=== PATIENT | female | born 1955 | race Caucasian/White ===

== ENCOUNTER → 2017-08-08 14:21 | Outpatient (CLI) | payer OTHER, SELFPAY ==
--- NOTE | 2017-08-08 14:24 | DI.MG.S_ITS ---
BILATERAL DIGITAL DIAGNOSTIC MAMMOGRAM 3D/2D: 08/08/2017 CLINICAL: Right breast mass. Family history of breast cancer. Comparison is made to exams dated: 06/11/2016 mammogram, 03/16/2015 mammogram, and 01/14/2014 mammogram - [facility]. There are scattered fibroglandular elements in both breasts. No significant masses, calcifications, or other findings are seen in either breast. IMPRESSION: INCOMPLETE: NEEDS ADDITIONAL IMAGING EVALUATION There is no abnormality seen in the right breast to correspond with the area of clinical concern, however, ultrasound is recommended. This exam was interpreted at Station ID: [id number]. NOTE: For mammograms, a report in lay terms will be sent to the patient. Approximately 15% of breast malignancies will not be visualized mammographically. In the management of a palpable breast mass, a negative mammogram must not discourage biopsy of a clinically suspicious lesion. Electronically Signed By: Joesph yousif/kang:08/08/2017 15:25:38 ACR BI-RADS Category 0: Incomplete 3340F
--- NOTE | 2017-08-08 14:24 | DI.US.S_ITS ---
ULTRASOUND OF RIGHT BREAST: 08/08/2017 CLINICAL: Patient returns for additional imaging over a suspected mass in the right breast. Comparison is made to exams dated: 08/08/2017 mammogram - [facility], 06/11/2016 mammogram, and 03/16/2015 mammogram - [facility][1]. Color flow ultrasound of the right breast was performed. Bearden scale images of the real-time examination were reviewed. There is a benign 0.9 cm x 0.5 cm x 0.4 cm cyst with a smooth internal wall in the right breast at 10 o'clock anterior depth 3 cm from the nipple. This correlates as palpated and with mammography findings. IMPRESSION: BENIGN There is no sonographic evidence of malignancy. The 0.9 cm x 0.5 cm x 0.4 cm cyst in the right breast is benign. A 1 year screening mammogram is recommended. This exam was interpreted at Station ID: [id number]. Electronically Signed By: Joesph yousif/kang:08/08/2017 17:07:17 letter sent: Normal Exam Ultrasound BI-RADS: 2 Benign
== END ==
PROVIDERS: PCP Family Medicine; Visit Provider Family Medicine
DX: N63.10 Unspecified lump in the right breast, unspecified quadrant (principal); Z80.3 Family history of malignant neoplasm of breast
CPT/HCPCS: 76642; 77066; G0279

== ENCOUNTER → 2017-11-27 11:44 | Outpatient (CLI) | payer OTHER, SELFPAY ==
[2017-11-27 12:21] LABS: Add Manual Diff / Slide Review NO; Basophils Percent Auto 0.6 % (0-2); Eosinophils Percent Auto 11.2 % (2-4); Hematocrit 38.1 % (36-46); Hemoglobin 12.9 g/dL (12.0-16.0); Lymphocytes Percent Auto 35.3 % (25-40); Mean Corpuscular HGB Conc 33.8 % (30-36); Mean Corpuscular Hemoglobin 31.5 PG (26-34); Mean Corpuscular Volume 93.2 fL (80-100); Monocytes Percent Auto 12.3 % (3-14); Neutrophils Absolute Auto 1700 /uL (3000-5900); Neutrophils Percent Auto 40.6 % (50-75); Platelet Count 230 X10^3/uL (150-400); Red Blood Cell Count 4.09 X10^6/uL (4.0-5.2); Red Cell Distribution Width 13.6 % (11.6-14.8); White Blood Cell Count 4.2 X10^3/uL (4.5-11.0)
[2017-11-27 12:27] LABS: Alanine Aminotransferase 44 IU/L (9-52); Albumin 4.3 g/dL (3.5-5.0); Albumin Globulin Ratio 1.3 (1.0-2.8); Alkaline Phosphatase 110 U/L (38-126); Aspartate Aminotransferase 39 IU/L (14-36); BUN Creatinine Ratio 13.8 (6-22); Bilirubin Total 0.5 mg/dL (0.2-1.3); Blood Urea Nitrogen 11 mg/dL (7-17); Calcium 9.9 mg/dL (8.4-10.2); Carbon Dioxide 33 mmol/L (22-32); Chloride 104 mmol/L (98-107); Estimated Glomerular Filt Rate > 60.0 mL/min (>60); Globulin 3.3 g/dL (1.7-4.1); Glucose 99 mg/dL (80-110); HEMOLYSIS < 15 (0-50); Potassium 4.4 mmol/L (3.4-5.1); Sodium 145 mmol/L (137-145); Total Protein 7.6 g/dL (6.3-8.2)
[2017-11-27 13:16] LABS: Vitamin B12 386 pg/mL (239-931)
[2017-11-27 15:17] LABS: HIV 1 and 2 Antibody NEGATIVE (NEGATIVE)
[2017-12-03 11:53] LABS: Rapid Plasma Reagin NON-REACTIVE
== END ==
PROVIDERS: PCP Family Medicine; Visit Provider Internal Medicine
DX: R26.81 Unsteadiness on feet (principal)
CPT/HCPCS: 36415; 80053; 82607; 85025; 86592; 86703

== ENCOUNTER → 2018-03-06 11:17 | Outpatient (CLI) | payer OTHER, SELFPAY ==
--- NOTE | 2018-03-06 | DI.MRI.S_ITS ---
PROCEDURE: MR HEAD/BRAIN WO/W CON INDICATIONS: GAIT INSTABILITY TECHNIQUE: Noncontrast axial T1 spin echo, axial T2 fast spin echo, sagittal and axial FLAIR, coronal T2 fast spin echo, axial gradient echo, axial diffusion and ADC through the brain. After the administration of contrast, axial and coronal 3D VIBE or T1 spin echo with fat saturation through the brain. COMPARISON: None. FINDINGS: Image quality: Excellent. CSF Spaces: Basal cisterns are patent. No extra-axial fluid collections. Ventricles are normal in size and shape. Brain: No midline shift. No intracranial bleeds or masses. No abnormal intracranial enhancement. The brainstem appears normal. Diffusion-weighted images demonstrate no acute ischemic insults. Few, scattered, small punctate foci of increased T2 signal noted in the periventricular and subcortical white matter tracts. No GRE weighted abnormalities identified in the brain parenchyma. There are no areas of encephalomalacia. Normal intravascular flow voids are present. Dural sinuses demonstrate normal postcontrast enhancement. Skull and face: Calvarial marrow is normal in signal. Orbits appear normal. Sinuses: Mucosal thickening noted in the frontal sinuses and the ethmoid air cells. The mastoids appear clear. IMPRESSION: 1. No acute intracranial disease process. 2. Mild periventricular and subcortical white matter chronic microvascular ischemic changes. 3. No abnormal intracranial mass. 4. No suspicious postcontrast enhancement. Dictated by: Zoë Tobias MD, PhD on 03/06/2018 at 16:48 Approved by: Zoë Tobias MD, PhD on 03/06/2018 at 17:00
== END ==
PROVIDERS: PCP Family Medicine; Visit Provider Specialist
DX: R26.89 Other abnormalities of gait and mobility (principal)
CPT/HCPCS: 70553; A9579

== ENCOUNTER → 2018-10-21 17:22 | Outpatient (CLI) | payer BC, SELFPAY ==
--- NOTE | 2018-10-21 17:30 | DI.MG.S_ITS ---
BILATERAL DIGITAL SCREENING MAMMOGRAM 3D/2D WITH CAD: 10/21/2018 CLINICAL: Routine screening. Family history of breast cancer. Comparison is made to exams dated: 08/08/2017 mammogram - [facility], 06/11/2016 mammogram, and 03/16/2015 mammogram - [facility]. There are scattered fibroglandular elements in both breasts. Current study was also evaluated with a Computer Aided Detection (CAD) system. No significant masses, calcifications, or other findings are seen in either breast. There has been no significant interval change. IMPRESSION: NEGATIVE There is no mammographic evidence of malignancy. A 1 year screening mammogram is recommended. This exam was interpreted at Station ID: [id number]. NOTE: For mammograms, a report in lay terms will be sent to the patient. Approximately 15% of breast malignancies will not be visualized mammographically. In the management of a palpable breast mass, a negative mammogram must not discourage biopsy of a clinically suspicious lesion. Electronically Signed By: Leonela warner/kang:10/22/2018 07:49:53 letter sent: Normal Exam ACR BI-RADS Category 1: Negative 3341F
== END ==
PROVIDERS: Family Provider Family Medicine; PCP Family Medicine; Visit Provider Family Medicine
DX: Z12.31 Encounter for screening mammogram for malignant neoplasm of breast (principal); Z80.3 Family history of malignant neoplasm of breast
CPT/HCPCS: 77063; 77067

== ENCOUNTER → 2018-10-29 11:46 | Outpatient (CLI) | payer BC, SELFPAY ==
--- NOTE | 2018-10-29 11:49 | DI.RAD.S_ITS ---
PROCEDURE: XR KNEE LT 3V INDICATIONS: left medial knee pain TECHNIQUE: 3 views of the knee were acquired. COMPARISON: None. FINDINGS: Bones: No fractures or dislocations. No suspicious bony lesions. Soft tissues: No joint effusion. No suspicious soft tissue calcifications. IMPRESSION: Mild medial compartment joint space narrowing consistent with mild osteoarthritis. No effusion or loose body found. Dictated by: Lasha Jacksno M.D. on 10/29/2018 at 12:15 Approved by: Lasha Jackson M.D. on 10/29/2018 at 12:16
== END ==
PROVIDERS: PCP Family Medicine; Visit Provider Nurse Practitioner Family
DX: M25.562 Pain in left knee (principal); M17.12 Unilateral primary osteoarthritis, left knee
CPT/HCPCS: 73562

== ENCOUNTER 2018-12-02 07:35 | Day surgery (SDC) | payer BC, SELFPAY ==
[2018-12-02] MEDS: PROPARACAINE 0.5% OPHTH SOL 2 DROPS EYE-OP (08:27)
[2018-12-02] MEDS: CATARACT EYE COMPOUND (10 DROPS/SYRINGE) 3 DROPS EYE-OP (08:33)
[2018-12-02 08:35] VITALS: BMI 25.4
[2018-12-02 08:48] VITALS: BP 104/66; PULSE 53; RESP 20; TEMP 36.4; O2SAT 98
--- NOTE | 2018-12-02 09:27 | PM.PREOP ---
Pre-operative Note Interval Note History & Physical reviewed/Exam performed by Physician: No Changes to H&P: No
--- NOTE | 2018-12-02 09:27 | PM.OP.1 ---
Operative Date/Time/Diagnoses Pre-op diagnosis: Nuclear Cataract Left eye Post-op diagnosis: same Procedure & Clinicians Surgeon: Evan Harris Anesthesia Type: MAC +/- and Sedation Operative Notes Procedure in detail: Patient brought to the operating suite. Tetracaine drops placed in the left eye. Patient was prepped and draped in sterile manner. Wire lid speculum was placed in the eye. Betadine drops were placed on the eye. This was irrigated. Lidocaine jelly was placed on the eye. A paracentesis port was created with a side-port blade. 0.1 mL 1% preservative free lidocaine was injected into the anterior chamber. The anterior chamber was deepened with viscoelastic. 2.6 mm keratome was used to create a temporal clear corneal incision. Cystotome and Utrata forceps were used to create continuous tear capsulorrhexis. Balanced salt solution was used to hydro dissect the nucleus. The phacoemulsification handpiece was inserted and the nucleus was removed using the stop and chop technique. The irrigation aspiration handpiece was inserted and the remaining cortex was removed. Anterior chamber was deepened with viscoelastic. An Johnson ZCB00 intraocular lens with a power of 24.5 was injected into the capsular bag. Irrigation aspiration handpiece was inserted and the remaining viscoelastic was removed. Incision was hydrated with balanced salt solution and found to be leak free with pressure with Weck-Steph sponges. 0.1 mL Vigamox injected anterior chamber. 0.3 mL Kenalog 10 mg was injected subconjunctivally. Lid speculum was removed. The patient left the operating room in excellent condition. Complications: none Post-operative Condition: stable Disposition: same day surgery
[2018-12-02] MEDS: PHENYLEPHRINE/LIDOCAINE VIAL (OR) 0.2 ML EYE-OP (09:43)
[2018-12-02] MEDS: CHONDROIDTIN/SOD HYALURONATE 1.05 ML SYRINGE INTRAOCULA (09:43)
[2018-12-02] MEDS: TRIAMCINOLONE 50 MG/5 ML VIAL INJ (09:43)
[2018-12-02] MEDS: MOXIFLOXACIN INJ 5 MG/ML VIAL EYE-OP (09:43)
[2018-12-02] MEDS: BALANCED SALT IRRIG SOLN NO.2 500 ML, EPINEPHrine 1 MG IRR (09:44)
[2018-12-02] MEDS: TETRACAINE 0.5% OPHTH DROPS 4 ML 2 DROPS EYE-OP (09:44)
[2018-12-02] MEDS: LIDOCAINE JELLY 2% 5 ML 1 APPLIC TOP (09:44)
[2018-12-02 10:10] VITALS: TEMP 36.4
== END 2018-12-02 10:18 | disposition home or self-care (01) ==
LOC: OR 07:36
PROVIDERS: PCP Family Medicine; Visit Provider Ophthalmology
PROC: (CPT 66984; principal; 2018-12-02 09:15)
DX: H25.12 Age-related nuclear cataract, left eye (principal); J45.909 Unspecified asthma, uncomplicated
CPT/HCPCS: 66984; J0171; J2250; J3010; J3301

== ENCOUNTER → 2018-12-05 16:12 | Outpatient (CLI) | payer BC, SELFPAY ==
--- NOTE | 2018-12-05 | DI.MRI.S_ITS ---
PROCEDURE: MR KNEE LT WO CON INDICATIONS: Pain in left knee TECHNIQUE: Noncontrast sagittal PD fast spin echo and T2 fast spin echo with fat saturation, sagittal 3-D FLASH with fat saturation; coronal T1 spin echo and PD fast spin echo with fat saturation, and axial PD fast spin echo with fat saturation through the knee. COMPARISON: [facility], CR, XR KNEE ARTHRITIC SERIES LT, 11/12/2018, 9:56. [facility], CR, XR KNEE LT 3V, 10/29/2018, 11:51. FINDINGS: Image quality: Excellent. Menisci: There is an inferior flap tear in the medial meniscus involving the body and posterior horn with a small extruded component inferiorly extending into the medial gutter. The lateral meniscus demonstrates mild degenerative signal in the body but appears intact. The meniscal root ligaments appear intact. Cruciate ligaments: The anterior and posterior cruciate ligaments appear intact. Medial structures: The medial collateral ligament appears intact. The semimembranosus tendon insertions and meniscocapsular junction appear intact. Visualized portions of the pes anserinus tendons appear intact without associated bursal fluid collections. Lateral structures: The lateral collateral ligament, long and short heads of the biceps femoris tendon appear intact. The popliteus tendon appears intact. Iliotibial band appears normal. Anterior structures: The quadriceps and patellar tendons appear intact. There is mild tendinopathy of the distal quadriceps tendon and proximal patellar tendon. Patellar alignment is normal. No femoral trochlear dysplasia or ventral trochlear prominence. No edema in the infrapatellar fat pad. Bones and cartilage: No bone marrow contusions or fractures. There is mild to moderate cartilage thinning in the medial compartment with chondral fraying. There is mild subchondral edema peripherally in the medial tibial plateau. In the lateral compartment, there is mild superficial chondral irregularity. In the patellofemoral compartment, there is mild cartilage thinning with superficial chondral irregularity. Joint space: There is physiologic knee joint fluid. There is a small Auguste's cyst. Normal appearing synovial plicae are incidentally noted. IMPRESSION: 1. Inferior flap tear of the medial meniscus as described. 2. Mild osteoarthritic changes predominately in the medial compartment. 3. Small Auguste's cyst. Dictated by: Meet Chan M.D. on 12/05/2018 at 17:49 Approved by: Meet Chan M.D. on 12/05/2018 at 17:53
== END ==
PROVIDERS: PCP Family Medicine; Visit Provider Orthopaedic Surgery
DX: M25.562 Pain in left knee (principal); S83.242A Other tear of medial meniscus, current injury, left knee, initial encounter; M71.22 Synovial cyst of popliteal space [Baker], left knee
CPT/HCPCS: 73721

== ENCOUNTER → 2019-10-20 09:38 | Outpatient (CLI) | payer BC, SELFPAY ==
--- NOTE | 2019-10-20 09:40 | DI.NM.S_ITS ---
PROCEDURE: NM HIDA WITH CCK PHARMACEUTICAL: 5.4 mCi Tc-99m mebrofenin IV; 1.7 mcg CCK IV. INDICATIONS: RUQ pain, no cholelithiasis on US TECHNIQUE: Following intravenous administration of Tc-99m mebrofenin, sequential anterior abdominal images were obtained. To evaluate the contractile response of the gallbladder in response to Cholecystokinin (CCK), sincalide (0.02 ?g/kg) was administered by slow intravenous infusion approximately 60 minutes after the administration of the radiopharmaceutical. Sequential imaging was continued for 30 minutes after the start of CCK infusion. Gallbladder ejection fraction was calculated. COMPARISON: None. FINDINGS: Biliary scan: There is normal tracer uptake and excretion by the liver. There is normal visualization of the intrahepatic ducts, common bile duct, and gallbladder. There is normal tracer transit into the duodenum. CCK stimulation: There is poor contractile response of the gallbladder to CCK infusion. The calculated gallbladder ejection fraction is 11%; normal values are above 35%. IMPRESSION: 1. Normal filling of gallbladder. No evidence for acute cholecystitis. 2. Poor contractile response of gallbladder to CCK stimulation. This finding is consistent with gallbladder dyskinesia. Dictated by: Josefina Alcantara M.D. on 10/20/2019 at 11:56 Approved by: Josefina Alcnatara M.D. on 10/20/2019 at 11:58
== END ==
PROVIDERS: PCP Family Medicine; Referring Provider Family Medicine; Visit Provider Family Medicine
DX: R10.11 Right upper quadrant pain (principal)
CPT/HCPCS: 78227; A9537; J2805

== ENCOUNTER → 2019-10-26 11:56 | Outpatient (CLI) | payer BC, SELFPAY | PROVIDERS: PCP Family Medicine; Referring Provider Family Medicine; Visit Provider Family Medicine | DX: E03.9 Hypothyroidism, unspecified (principal) | CPT/HCPCS: 36415; 84443 ==

== ENCOUNTER → 2019-10-31 15:20 | Outpatient (CLI) | payer BC, SELFPAY ==
--- NOTE | 2019-10-31 | DI.MG.S_ITS ---
BILATERAL DIGITAL SCREENING MAMMOGRAM 3D/2D WITH CAD: 10/31/2019 CLINICAL: Routine screening. Family history of breast cancer. Comparison is made to exams dated: 10/21/2018 mammogram, 08/08/2017 mammogram - [facility], 06/11/2016 mammogram, 03/16/2015 mammogram, and 01/14/2014 mammogram - [facility]. There are scattered fibroglandular elements in both breasts. Current study was also evaluated with a Computer Aided Detection (CAD) system. No significant masses, calcifications, or other findings are seen in either breast. There has been no significant interval change. IMPRESSION: NEGATIVE There is no mammographic evidence of malignancy. A 1 year screening mammogram is recommended. This exam was interpreted at Station ID: [id number]. NOTE: For mammograms, a report in lay terms will be sent to the patient. Approximately 15% of breast malignancies will not be visualized mammographically. In the management of a palpable breast mass, a negative mammogram must not discourage biopsy of a clinically suspicious lesion. Electronically Signed By: Sung casey/kang:11/02/2019 09:49:16 letter sent: Normal Exam ACR BI-RADS Category 1: Negative 3341F
== END ==
PROVIDERS: PCP Family Medicine; Referring Provider Family Medicine; Visit Provider Family Medicine
DX: Z12.31 Encounter for screening mammogram for malignant neoplasm of breast (principal); Z80.3 Family history of malignant neoplasm of breast
CPT/HCPCS: 77063; 77067

== ENCOUNTER → 2020-03-04 10:32 | Outpatient (CLI) | payer BC, SELFPAY ==
[2020-03-04 12:14] LABS: COVID19 -Nasal RAPID Negative (Negative)
== END ==
PROVIDERS: PCP Family Medicine; Visit Provider Specialist
DX: Z01.812 Encounter for preprocedural laboratory examination (principal); Z20.828 Contact with and (suspected) exposure to other viral communicable diseases
CPT/HCPCS: 87635; C9803

== ENCOUNTER 2020-03-07 06:28 | Day surgery (SDC) | payer BC, SELFPAY ==
[2020-03-02 15:20] VITALS: BMI 29.3
[2020-03-07] VITALS (14 sets, daily range): BP systolic 100–120; BP diastolic 66–75; PULSE 45–60; RESP 10–21; TEMP 36.1–36.8; O2SAT 89–100; BMI 29.3
--- NOTE | 2020-03-07 | PATH_ITS ---
[facility] Accession Number: [id number] . 01 Material submitted: . gallbladder - GALLBLADDER AND CONTENTS . 02 Diagnosis: Gallbladder and Contents: Benign cystic duct lymph node with lipogranulomas (0/1). Gallbladder with chronic cholecystitis and cholesterolosis. MRV 03/10/2020 1040 Local . 02 Electronically signed: . Madyson Ashley MD, Pathologist NPI- [id number] . 01 Gross description: . Received in formalin, labeled with the patient's name and gallbladder and contents, is an intact gallbladder, 9.5 x 2.5 x 2.5 cm, with clip at cystic duct margin (margin inked blue), with a patent duct and a 0.3 x 0.3 x 0.3 cm possible cystic duct lymph node. The gallbladder contains green bilious fluid, but no calculi identified within the specimen or container. The mucosa is green, velvety, with wall thickness up to 0.2 cm. Soup Person sections are submitted. . Summary of sections: A1. Gallbladder, cystic duct margin, possible cystic duct lymph node, five pieces. (UT:[id number]) /MRV 03/08/2020 1410 Local . 02 Pathologist provided ICD-10: K82.8, K81.1 . 02 CPT . 297153 Performed at: 01 [facility] [address] [facility], [place], [place] [id number] MD Meet Oconnell MD Phone: [phone] Performed at: 02 [facility] [address] [place], [place] [id number] MD Anastasia Blount MD Phone: [phone]
[2020-03-07] MEDS: ACETAMINOPHEN 325 MG TABLET 975 MG PO (07:20)
--- NOTE | 2020-03-07 07:31 | P.HP_ITS ---
History of Present Illness History of Present Illness Date Patient Seen: 03/07/20 Time Patient Seen: 07:31 Chief complaint: [facility] Narrative: The patient is a woman who has been feeling vaguely ill since I saw her in October. She has intermittent right upper quadrant pain and gallbladder nuclear scan that showed evidence of dyskinesia. She is brought in for laparoscopic cholecystectomy. Patient History Medical History Anemia Ankle pain Aortic regurgitation (2014) Arthritis Ascending aortic aneurysm (2015) Asplenia Asthma Bradycardia (2013) CAD (coronary artery disease) (2016) Cardiac arrhythmia (2013) Chicken pox (1961) Chronic back pain Closed left clavicular fracture CTS (carpal tunnel syndrome) Depression Esophageal spasm Foot pain Fractures Gastric ulcer (1988) GERD (gastroesophageal reflux disease) (1988) Hayfever Heart murmur Hemorrhoids (1975) Hyperlipidemia (2009) Hypothyroidism (~2007) Knee pain Liver disease Migraines Muscle spasm (2011) Neuropathy Osteoarthritis Pain Peripheral neuropathy Pneumonia Recurrent sinusitis Shoulder pain Sinus drainage SVT (supraventricular tachycardia) (2013) Thyroid nodule Ulcer Vertigo (2011) Wrist pain Surgical History Anesthesia complication History of orthopedic surgery (1994) History of right knee surgery (~2013) History of shoulder surgery (03/2017) History of surgery on arm (1996) Hx of arthroscopy of left knee (03/2019) Hx of bilateral cataract extraction Hx of laminectomy (09/22/19) Hx of shoulder surgery (~2015) Status post ablation of ventricular arrhythmia Status post appendectomy (1964) Family & Social History Family History Brother Age: 60 MS (multiple sclerosis) History of back surgery Sister Age: 59 History of back surgery Breast cancer High cholesterol Mental health problem Grandfather Heart attack Heart disease Grandmother Breast cancer Uterine cancer Heart disease Stroke Mother Age: 89 Skin cancer Heart disease Hypertension High cholesterol Mental health problem Stroke Mesenteric ischemia Dementia Sister Age: 66 History of back surgery High cholesterol Brother Scoliosis Chronic back pain Father Motorcycle accident Grandfather Cancer Grandmother Brain lesion Sister Cervical cancer Social History: household members spouse Tobacco & Substance use: Smoking Status Former smoker alcohol intake never Substance Use Type does not use Meds Home Medications and Allergies Home Medications Medication Instructions Recorded Confirmed Type albuterol sulfate 90 mcg/actuation 2 puff INHALATION SEE INSTRUCTIONS 08/04/18 03/07/20 Rx aerosol inhaler PRN #8.5 gram cyanocobalamin (vitamin B-12) 1,000 mcg PO DAILY 10/29/18 03/03/20 History 1,000 mcg capsule magnesium oxide 400 mg PO DAILY cap 10/29/18 03/03/20 History levothyroxine 50 mcg tablet 50 mcg PO DAILY #90 tab 10/27/19 03/03/20 Rx flaxseed oil 1,000 mg capsule 1,000 mg PO DAILY 11/04/19 03/03/20 History gabapentin 300 mg capsule 300 mg PO TID 11/04/19 03/03/20 History lansoprazole [Prevacid] 1 cap PO DAILY 03/03/20 03/03/20 History Allergies Allergy/AdvReac Type Severity Reaction Status Date / Time adhesive Allergy Severe blisters Verified 11/04/19 13:25 latex Allergy Severe blisters Verified 11/04/19 13:25 meperidine [From DEMEROL] Allergy Unknown Hives Verified 11/04/19 13:25 morphine [MORPHINE] Allergy Unknown Vomiting Verified 11/04/19 13:25 Sulfa (Sulfonamide Allergy Unknown Rash Verified 11/04/19 13:25 Antibiotics) [SULFA (SULFONAMIDE ANTIBIOTICS)] Review of Systems Review of Systems ROS: Yes All systems reviewed with the patient and are negative except as otherwise documented Exam Narrative Exam Narrative: Cooperative no apparent distress. Eyes nonicteric. Lungs clear to auscultation without rales or rhonchi. Heart regular rate and rhythm without murmur gallop. Abdomen is mildly protuberant soft nontender without mass. She is alert and oriented x3. Speech rate and content are appropriate. Affect is appropriate. Assessment & Plan Assessment & Plan narrative: Patient will gallbladder dyskinesia for laparoscopic cholecystectomy. I have discussed the operation the potential this will not cure her symptoms. Risks of bleeding, infection, hernia, injury to internal organs or ducts which would require major operation, bile leakage were all discussed with her and the potential for an ERCP discussed. She appears to understand wishes to proceed.
--- NOTE | 2020-03-07 07:34 | PM.PREOP ---
Pre-operative Note COVID-19 COVID-19 status: Negative Result date/Date tested (Pos, Neg/Pending): 03/04/20 Interval Note History & Physical reviewed/Exam performed by Physician: Yes Changes to H&P: No
[2020-03-07] MEDS: LACTATED RINGERS 1,000 ML 42 ML IV ×2 (07:35→09:44)
[2020-03-07] MEDS: SCOPOLAMINE 1 PATCH TOP (07:44)
[2020-03-07] MEDS: CEFAZOLIN 2 GM/100 ML FROZ.PIGGY IV (08:02)
--- NOTE | 2020-03-07 08:18 | SUR.OPER ---
Supine on padded OR bed, head on pillow, arms secured on padded arm boards at <90 degrees abduction, legs uncrossed, footboard, safety belt at thigh, tape over blanket over lower legs.
[2020-03-07] MEDS: BUPIVACAINE 0.5% (PF) VIAL 30 ML INJ (08:29)
--- NOTE | 2020-03-07 09:22 | PM.OP.1 ---
Operative Date/Time/Diagnoses Date of procedure: 03/07/20 Time of procedure: 09:22 Pre-op diagnosis: Gallbladder dyskinesia. Post-op diagnosis: same Procedure & Clinicians Procedure: l laparoscopic cholecystectomy Same procedure as scheduled: Yes Indications: Abdominal discomfort and a dysfunctional gallbladder on HIDA scanning Surgeon: Deven Kruse Click Yes if Unassisted: Yes Anesthesia Type: General Operative Notes Findings: Chronic adhesions of omentum to most of the surface of the gallbladder. Normal-sized ductal and vascular structures. Closure Type: primary Specimen(s): other (Gallbladder) Prosthetic devices, grafts, tissues, transplants, or devices: None Estimated Blood Loss (mL): 5 Blood products transfused: none Procedure in detail: The patient was placed supine on the operating room table and underwent general endotracheal anesthesia. The patient was prepped and draped in the usual fashion. Local anesthetic was infiltrated near the umbilicus and curvilinear incision made and carried down through fascia into the peritoneal cavity. Stay sutures of 0 Vicryl were placed in the fascia. A 12 mm port was placed. The abdomen was insufflated. The patient was repositioned. Local anesthetic was infiltrated in 3 areas under the right costal margin and 3 small incisions made followed by placing 3 5 mm ports under direct laparoscopic camera vision internally. The gallbladder was grasped and elevated. Dissection was begun near its end. There were adhesions of omentum to most of the surface of the gallbladder. These were taken down with blunt dissection and cautery. There was a minimal blood loss. A ductal and vascular structure singular nature going directly the gallbladder were identified and from surrounding structures. Three clips were placed across each and they were divided leaving 2 in the patient on each structure. There was some small veins that also had an additional clip applied to them. The gallbladder was then dissected from its bed in the liver using cautery. It was detached and removed through the umbilical port. the port sites were all irrigated. The stay sutures at the umbilicus were elevated. A 2 0 PDS suture was placed between them. The Vicryl and PDS sutures were then tied. The skin in all areas was closed with interrupted 4 0 Vicryl subcuticular stitches. Dermabond was applied due to patient's reaction to adhesives.. the patient was awakened, extubated and taken to the recovery area in good condition. Complications: none Post-operative Condition: stable Disposition: PACU Plan for aftercare: Follow-up in the office
--- NOTE | 2020-03-07 09:30 | SUR.PHASEI ---
Pt arrived 02 added, chin support needed only for short time for airway patency. Pt denied nausea, denied pain. Dr. Mccormack to bedside and hecked on pt.
[2020-03-07] MEDS: fentaNYL 100 MCG/2 ML INJ IV ×4 (09:40→10:20)
[2020-03-07] MEDS: ONDANSETRON 4 MG/2 ML INJ IV (09:40)
--- NOTE | 2020-03-07 10:15 | SUR.PHASEI ---
Pt medicated with ondansetron then fentanyl. Rates pain 8/10, 3doses given still rates pain 8/10, sleeping in between care, facial muscles relaxed, no moaning or furrowed brow.
--- NOTE | 2020-03-07 10:45 | SUR.PHASEI ---
Pain down to a 6/10 to opd, stable.
== END 2020-03-07 11:25 | disposition home or self-care (01) ==
PROVIDERS: PCP Family Medicine; Referring Provider Family Medicine; Visit Provider Specialist
PROC: 0FT44ZZ Resection of Gallbladder, Percutaneous Endoscopic Approach (ICD-10-PCS; CPT 47562; principal; 2020-03-07 07:45)
DX: K81.1 Chronic cholecystitis (principal); K82.8 Other specified diseases of gallbladder; I25.10 Atherosclerotic heart disease of native coronary artery without angina pectoris; K21.9 Gastro-esophageal reflux disease without esophagitis; J45.909 Unspecified asthma, uncomplicated
CPT/HCPCS: 47562; J0330; J0690; J1100; J1885; J2250; J2405; J2704; J3010

== ENCOUNTER → 2020-07-28 08:57 | Outpatient (CLI) | payer BC, SELFPAY ==
--- NOTE | 2020-07-28 | DI.ECHO.S_ITS ---
[facility]---------+ [facility] +---------+ : : [address] : : : : [id number] : : : : Phone: [phone]+ Echocardiogram Report + + :Name: LYNSEY RIVAS Study Date: 07/28/2020 Height: 67 in : :[facility] ReadingLocation: Weight: 194 lb : : Gender: Female BSA: 2.0 m2 : :: 1955 Age: 64 yrs BP: 131/93 mmHg: :Reason For Study: TIA : :Ordering Physician: ARTURO : :GUTIERREZ Performed By: Giovanny Jean-Baptiste : :Referring: GUTIERREZ MORRIS : + + Interpretation Summary Sinus bradycardia. Heart rate is 51-66 bpm during exam. Normal LV size, wall thickness, wall motion and LV systolic function. EF is 60-65%. Normal chamber sizes. Aortic valve leaflets are not particularly calcified; yet there is moderate central aortic regurgitation. Mildly dilated ascending aorta. There is evidence of PFO based on agitated saline study. Recommend cardiology consult. Compared to prior study 03/11/2014, LA volume index dropped from 43 to 29 ml/m2. PFO is new Procedure: A two-dimensional transthoracic echocardiogram with color flow and Doppler was performed. The study quality was technically adequate. Comparison is made with the echocardiogram of 03/11/2014. The patient was in sinus rhythm with heart rates between 51-66 bpm during the exam. Left Ventricle: The left ventricle is normal in size and wall thickness. Left ventricular systolic function is normal. The ejection fraction is estimated to be 60-65%. There are no focal wall motion abnormalities. Diastolic parameters suggest probable normal left ventricular diastolic function and normal filling pressures. Right Ventricle: The right ventricle is normal in size and function. Atria: Both atria are normal in size. Injection of contrast documented an interatrial shunt. Mitral Valve: The mitral valve is normal in structure and function. There is trace mitral regurgitation. Aortic Valve: The aortic valve is normal in structure and function. There is moderate aortic regurgitation. Tricuspid Valve: The tricuspid valve is normal in structure and function. There is mild tricuspid regurgitation. The right ventricular systolic pressure is estimated to be at least 28 mmHg based on an estimated right atrial pressure of 3 mm Hg. Pulmonic Valve: The pulmonic valve is not well seen, but is grossly normal. There is mild pulmonic regurgitation. Great Vessels: The aortic root is normal size. The ascending aorta is mildly enlarged. The IVC is of normal diameter and collapses greater than 50% with a sniff. This suggests a low right atrial pressure of 3 mm Hg. Pericardium/ Pleura There is no pericardial effusion. There is no pleural effusion. MMode/2D Measurements & Calculations LVIDd: 5.0 cm LVOT diam: 2.2 cm LVIDs: 3.3 cm Ao root diam: 3.4 cm FS: 34.8 % asc Aorta Diam: 4.0 cm IVSd: 0.98 cm LVPWd: 0.87 cm LV bernal. diameter/BSA (cm/m^2): 2.5 LV sys. diameter/BSA (cm/m^2): 1.6 LA A2 area: 18.7 cm2 RA area: 12.4 cm2 LA A4 area: 19.7 cm2 LA length (vol): 5.4 cm LA vol: 57.4 ml LA vol index: 28.7 ml/m2 RVD1 (basal): 2.5 cm TAPSE: 2.6 cm Doppler Measurements & Calculations Ao V2 max: 167.5 cm/sec LVOT Max Darvin: 123.1 cm/sec Ao V2 mean: 110.9 cm/sec LV V1 max P.1 mmHg Ao max P.2 mmHg LV V1 VTI: 28.3 cm Ao mean P.7 mmHg DECLAN(I,D): 3.0 cm2 Ao V2 VTI: 35.8 cm DECLAN(V,D): 2.8 cm2 sev ratio: 0.79 DECLAN indexed to BSA (cm^2/m^2): 1.5 AI P1/2t: 862.7 msec AI dec slope: 137.0 cm/sec2 MV E max darvin: 91.2 cm/sec TR max darvin: 251.4 cm/sec MV A max darvin: 97.7 cm/sec TR max P.3 mmHg MV E/A: 0.93 PA V2 max: 82.1 cm/sec Med Peak E' Darvin: 8.7 cm/sec PA V2 mean: 58.2 cm/sec E/E' med: 10.4 PA mean P.5 mmHg Lat Peak E' Darvin: 10.0 cm/sec PA pr(Accel): 21.9 mmHg E/E' lat: 9.1 E/e' average: 9.8 MV dec time: 0.24 sec SV(LVOT): 107.3 ml Electronically signed by: Laina Kennedy M.D. on [place] Physician:07/28/2020 11:36 PM
--- NOTE | 2020-07-28 | DI.US.S_ITS ---
PROCEDURE: US CAROTID DOPPLER BI INDICATIONS: TRANSIENT VISION LOSS TECHNIQUE: Color and pulse Doppler interrogation was performed of both carotid systems, with image documentation and velocity measurements. COMPARISON: [facility], MR, MR HEAD/BRAIN WO/W CON, 03/06/2018, 11:20. FINDINGS: Stenosis calculations are based on SRU (Society of Radiologists in Ultrasound) criteria. The flow velocities and the arterial waveforms are normal within both carotid arterial systems. The estimated degree of internal carotid artery stenosis is less than 50%. Antegrade flow is confirmed within both vertebral arteries. IMPRESSION: No hemodynamically significant stenosis is seen. Dictated by: Pepe Vazquez M.D. on 07/28/2020 at 9:56 Approved by: Pepe Vazquez M.D. on 07/28/2020 at 9:57
== END ==
PROVIDERS: PCP Family Medicine; Referring Provider Ophthalmology; Visit Provider Ophthalmology
DX: H53.123 Transient visual loss, bilateral (principal); I08.2 Rheumatic disorders of both aortic and tricuspid valves; I77.89 Other specified disorders of arteries and arterioles
CPT/HCPCS: 93306; 93880

== ENCOUNTER 2020-08-04 14:30 | Emergency (ER) | payer BC, SELFPAY ==
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
--- NOTE | 2020-08-04 14:37 | DI.RAD.S_ITS ---
PROCEDURE: XR SHOULDER RT MIN 2V INDICATIONS: pain TECHNIQUE: 3 views of the shoulder were acquired. COMPARISON: [facility], , SHOULDER MINIMUM 2 VIEW LEFT, 12/20/2016, 1:28. FINDINGS: Bones: No fractures or dislocations. No suspicious bony lesions. Visualized ribs appear intact. Soft tissues: No suspicious soft tissue calcifications. IMPRESSION: No acute fracture. No osseous lesion. If symptoms and/or clinical suspicion for pathology persist, further assessment with repeat, or advanced imaging (e.g., CT, MRI, or bone scan) may be helpful for further assessment. Dictated by: Liborio Larson M.D. on 08/04/2020 at 15:14 Approved by: Liborio Larson M.D. on 08/04/2020 at 15:15
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
[2020-08-04 14:40] VITALS: BP 106/67; PULSE 67; RESP 15; TEMP 37.1; O2SAT 94; BMI 30.4
--- NOTE | 2020-08-04 14:43 | DI.RAD.S_ITS ---
PROCEDURE: XR FINGER LT MIN 2V INDICATIONS: finger injury TECHNIQUE: AP hand, 2 views of the left 5th finger(s) acquired. COMPARISON: None. FINDINGS: Bones: Mildly displaced fracture of the proximal aspect of the distal phalanx of the 5th digit with articular surface extension to the distal interphalangeal joint involving the volar plate. Soft tissues: No suspicious soft tissue calcifications. IMPRESSION: Comminuted 5th digit fracture as above with articular surface extension. Dictated by: Liborio Larson M.D. on 08/04/2020 at 15:12 Approved by: Liborio Larson M.D. on 08/04/2020 at 15:13
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
[2020-08-04] MEDS: KETOROLAC 30 MG/ML VIAL IM (15:53)
[2020-08-04 17:08] VITALS: BP 103/61; PULSE 49; RESP 14; O2SAT 98
== END 2020-08-04 17:10 | disposition home or self-care (01) ==
PROVIDERS: Emergency Provider Emergency Medicine; PCP Family Medicine
DX: S43.401A Unspecified sprain of right shoulder joint, initial encounter (principal); S62.667A Nondisplaced fracture of distal phalanx of left little finger, initial encounter for closed fracture; V19.9XXA Pedal cyclist (driver) (passenger) injured in unspecified traffic accident, initial encounter
CPT/HCPCS: 70450; 71045; 72125; 73030; 73140; 73562; 96372; 99283; 99284; J1885

== ENCOUNTER → 2020-08-15 06:50 | Outpatient (CLI) | payer BC, SELFPAY ==
--- NOTE | 2020-08-15 | DI.MRI.S_ITS ---
PROCEDURE: MR SHOULDER RT WO CON INDICATIONS: Fracture of right shoulder girdle, part unspecifie TECHNIQUE: Noncontrast oblique coronal T2 fast spin echo with fat saturation, oblique sagittal T1 spin echo and T2 fast spin echo with fat saturation, axial T1 spin echo and T2 fast spin echo with fat saturation through the shoulder. COMPARISON: [facility], CR, XR SHOULDER 2+ VIEWS RIGHT, 08/11/2020, 15:34. FINDINGS: Image quality: Excellent. Rotator cuff: Mild T2 signal elevation throughout the subscapularis and supraspinatus tendons at the humeral insertion sites and extending to the musculotendinous junctions, indicating tendinopathy. No rotator cuff tearing. No rotator cuff atrophy. Bones and bursae: Hill-Sachs deformity of the humeral head is present with underlying moderate ill-defined T2 signal elevation, indicating contusion. There is a moderately displaced fracture of the anterior glenoid with underlying moderate ill-defined T2 signal elevation, indicating contusion. Moderate acromioclavicular joint degeneration. The acromion demonstrates conventional anatomy, without an os acromiale. Small amount of subacromial-subdeltoid or subcoracoid bursal fluid is present. Capsule and soft tissues: Anterior labral tearing is present. The long head of the biceps tendon demonstrates normal location and morphology. Moderate glenohumeral joint effusion. Multiple intra-articular loose bodies, largest of which measures 17 mm in the inferior glenohumeral joint. The rotator interval appears normal, without fibrosis. The coracohumeral ligament is normal in thickness. IMPRESSION: 1. Sequelae of recent anterior shoulder dislocation with associated anterior glenoid fracture and Hill-Sachs deformity of the humeral head. 2. Anterior glenoid labral tearing. 3. Glenohumeral joint effusion and intra-articular loose bodies. 4. Subacromial bursitis. 5. Acromioclavicular joint osteoarthritis. 6. Tendinopathy of the supraspinatus and subscapularis. No rotator cuff tear. Dictated by: Liborio Larson M.D. on 08/15/2020 at 10:08 Approved by: Liborio Larson M.D. on 08/15/2020 at 10:12
== END ==
PROVIDERS: PCP Family Medicine; Referring Provider Orthopaedic Surgery; Visit Provider Orthopaedic Surgery
DX: S42.141A Displaced fracture of glenoid cavity of scapula, right shoulder, initial encounter for closed fracture (principal); S43.004S Unspecified dislocation of right shoulder joint, sequela; M19.011 Primary osteoarthritis, right shoulder; M75.51 Bursitis of right shoulder; S43.491A Other sprain of right shoulder joint, initial encounter; M25.411 Effusion, right shoulder; X58.XXXA Exposure to other specified factors, initial encounter
CPT/HCPCS: 73221

== ENCOUNTER → 2020-11-29 17:21 | Outpatient (CLI) | payer BC, SELFPAY ==
--- NOTE | 2020-11-29 | DI.MG.S_ITS ---
BILATERAL DIGITAL SCREENING MAMMOGRAM 3D/2D WITH CAD: 11/29/2020 CLINICAL: Routine screening. Family history of breast cancer. Comparison is made to exams dated: 10/31/2019 mammogram, 10/21/2018 mammogram, 08/08/2017 mammogram, and 08/08/2017 [facility]. There are scattered fibroglandular elements in both breasts. Current study was also evaluated with a Computer Aided Detection (CAD) system. No significant masses, calcifications, or other findings are seen in either breast. There has been no significant interval change. IMPRESSION: NEGATIVE There is no mammographic evidence of malignancy. A 1 year screening mammogram is recommended. This exam was interpreted at Station ID: [id number]. NOTE: For mammograms, a report in lay terms will be sent to the patient. Approximately 15% of breast malignancies will not be visualized mammographically. In the management of a palpable breast mass, a negative mammogram must not discourage biopsy of a clinically suspicious lesion. Electronically Signed By: Seven Skinner acr/kang:11/30/2020 11:40:14 letter sent: Normal Exam ACR BI-RADS Category 1: Negative [id number]
== END ==
PROVIDERS: PCP Family Medicine; Referring Provider Family Medicine; Visit Provider Family Medicine
DX: Z12.31 Encounter for screening mammogram for malignant neoplasm of breast (principal); Z80.3 Family history of malignant neoplasm of breast
CPT/HCPCS: 77063; 77067

== ENCOUNTER → 2020-12-01 11:22 | Outpatient (CLI) | payer BC, SELFPAY ==
[2020-12-01 12:37] LABS: Alanine Aminotransferase 48 IU/L (<35); Albumin 4.2 g/dL (3.5-5.0); Albumin Globulin Ratio 1.3 (1.0-2.8); Alkaline Phosphatase 154 U/L (38-126); Aspartate Aminotransferase 49 IU/L (14-36); BUN Creatinine Ratio 17.9 (6-22); Bilirubin Total 0.5 mg/dL (0.2-1.3); Blood Urea Nitrogen 14 mg/dL (7-17); Calcium 9.7 mg/dL (8.4-10.2); Carbon Dioxide 29 mmol/L (22-32); Chloride 104 mmol/L (98-107); Estimated Glomerular Filt Rate > 60.0 mL/min (>60); Globulin 3.2 g/dL (1.7-4.1); Glucose 97 mg/dL (80-110); HEMOLYSIS < 15 (0-50); Potassium 4.3 mmol/L (3.4-5.1); Sodium 140 mmol/L (137-145); Total Protein 7.4 g/dL (6.3-8.2)
[2020-12-01 13:47] LABS: TSH w/ Reflex to FT4 2.29 uIU/mL (0.47-4.68)
== END ==
PROVIDERS: PCP Family Medicine; Referring Provider Family Medicine; Visit Provider Family Medicine
DX: E03.9 Hypothyroidism, unspecified (principal)
CPT/HCPCS: 36415; 80053; 84443

== ENCOUNTER → 2020-12-29 11:41 | Outpatient (CLI) | payer BC, SELFPAY ==
[2020-12-29 12:31] LABS: Alanine Aminotransferase 104 IU/L (<35); Albumin 4.2 g/dL (3.5-5.0); Albumin Globulin Ratio 1.2 (1.0-2.8); Alkaline Phosphatase 202 U/L (38-126); Aspartate Aminotransferase 85 IU/L (14-36); Bilirubin Total 0.4 mg/dL (0.2-1.3); Blood Urea Nitrogen 15 mg/dL (7-17); Calcium 9.4 mg/dL (8.4-10.2); Carbon Dioxide 32 mmol/L (22-32); Chloride 105 mmol/L (98-107); Estimated Glomerular Filt Rate > 60.0 mL/min (>60); Globulin 3.4 g/dL (1.7-4.1); Glucose 96 mg/dL (80-110); HEMOLYSIS < 15 (0-50); Potassium 4.4 mmol/L (3.4-5.1); Sodium 140 mmol/L (137-145); Total Protein 7.6 g/dL (6.3-8.2)
== END ==
PROVIDERS: PCP Family Medicine; Referring Provider Family Medicine; Visit Provider Family Medicine
DX: R74.01 Elevation of levels of liver transaminase levels (principal)
CPT/HCPCS: 36415; 80053

== ENCOUNTER → 2021-01-11 11:27 | Outpatient (CLI) | payer BC, SELFPAY ==
--- NOTE | 2021-01-11 11:28 | DI.US.S_ITS ---
PROCEDURE: US ABDOMEN COMPLETE INDICATIONS: RAISING TRANSAMINASES TECHNIQUE: Real-time scanning was performed of the abdominal and retroperitoneal organs, with image documentation. COMPARISON: None. FINDINGS: Liver: Slightly increased echogenicity of the liver. The liver measures 15.6 cm in length. The portal vein is patent. Gallbladder: Cholecystectomy. Biliary ducts: Intrahepatic bile ducts are non-dilated. Extrahepatic bile duct caliber measures 4 mm. Normal is 6-7 mm or less in diameter, or 10 mm or less post-cholecystectomy. Pancreas: Visualized portions of the pancreas are sonographically normal. Spleen: Not well visualized but grossly unremarkable. Kidneys: Kidneys are normal in size and echotexture. Right kidney measures 11.4 cm long; left kidney measures 11.2 cm long. No hydronephrosis or nephrolithiasis. No solid masses. Aorta: Visualized aorta is normal in caliber at less than 3 cm. Iliacs: Proximal common iliac arteries are normal in caliber at less than 2.5 cm. IVC: Intrahepatic inferior vena cava is patent. Miscellaneous: No free abdominal fluid. IMPRESSION: No sonographic abnormality. Dictated by: Sly Drew M.D. on 01/11/2021 at 13:54 Approved by: Sly Drew M.D. on 01/11/2021 at 13:56
== END ==
PROVIDERS: PCP Family Medicine; Referring Provider Family Medicine; Visit Provider Family Medicine
DX: R74.01 Elevation of levels of liver transaminase levels (principal)
CPT/HCPCS: 76700

== ENCOUNTER → 2021-01-18 12:57 | Outpatient (CLI) | payer BC, SELFPAY ==
--- NOTE | 2021-01-18 12:59 | DI.MRI.S_ITS ---
PROCEDURE: MR CERVICAL SPINE WO CON INDICATIONS: left cervical radiculopathy TECHNIQUE: Noncontrast sagittal T1 spin echo and T2 fast spin echo, sagittal STIR, foraminal oblique sagittal T2 fast spin echo, and axial gradient echo or T2 fast spin echo through the cervical spine. COMPARISON: None. FINDINGS: Normal cervical spine vertebral body height, alignment, and signal intensity. No suspicious focal marrow signal abnormality or bone marrow edema. Normal morphology and signal intensity of the cervical cord. There is no syrinx. The unenhanced prevertebral and paraspinous soft tissues are grossly unremarkable in the absence of IV contrast. C2-C3: No spinal canal or neural foraminal stenosis. C3-C4: No spinal canal stenosis. Facet and uncovertebral hypertrophy contribute to mild bilateral neural foraminal narrowing. C4-C5: Posterior disc osteophyte complex slightly flattens the ventral cord. Facet and uncovertebral hypertrophy contribute to mild bilateral neural foraminal stenosis. C5-C6: Posterior disc-osteophyte complex flattens the ventral cord. Facet and uncovertebral hypertrophy contribute to moderate bilateral neural foraminal stenosis. C6-C7: No spinal canal stenosis. Facet and uncovertebral hypertrophy contribute to mild bilateral neural foraminal narrowing. C7-T1: No spinal canal or neural foraminal stenosis. IMPRESSION: Multilevel multifactorial degenerative changes worst at C5-C6 where there is mild spinal canal stenosis and moderate bilateral neural foraminal narrowing. Dictated by: Barry Saravia M.D. on 01/18/2021 at 15:34 Approved by: Barry Saravia M.D. on 01/18/2021 at 15:36
== END ==
PROVIDERS: PCP Family Medicine; Referring Provider Family Medicine; Visit Provider Family Medicine
DX: M50.122 Cervical disc disorder at C5-C6 level with radiculopathy (principal); M48.02 Spinal stenosis, cervical region
CPT/HCPCS: 72141

== ENCOUNTER → 2021-02-21 14:32 | Outpatient (CLI) | payer BC, SELFPAY ==
--- NOTE | 2021-02-21 14:36 | DI.RAD.S_ITS ---
PROCEDURE: XR CHEST 2V INDICATIONS: wheezing TECHNIQUE: 2 views of the chest were acquired. COMPARISON: [facility], CR, XR CHEST 1V, 08/04/2020, 14:41. FINDINGS: Surgical changes and devices: Fixation plate and screws involving the distal left clavicle. Lungs and pleura: Lungs are clear. No pleural effusions or pneumothorax. Mediastinum: Mediastinal contours are normal. Heart size is normal. Bones and chest wall: No suspicious bony abnormalities. Soft tissues appear unremarkable. IMPRESSION: No acute cardiopulmonary disease. Dictated by: Cody Vasquez RR Interpreted: Josefina Alcantara MD on 02/21/2021 at 14:56 Transcribed by: YOANNA on 02/21/2021 at 14:57 Approved by: Josefina Alcantara M.D. on 02/21/2021 at 16:47
== END ==
PROVIDERS: PCP Family Medicine; Referring Provider Family Medicine; Visit Provider Family Medicine
DX: R06.2 Wheezing (principal)
CPT/HCPCS: 71046

== ENCOUNTER → 2021-02-22 11:17 | Outpatient (CLI) | payer BC, SELFPAY ==
[2021-02-22 13:17] LABS: Alanine Aminotransferase 57 IU/L (<35); Albumin 4.2 g/dL (3.5-5.0); Albumin Globulin Ratio 1.3 (1.0-2.8); Alkaline Phosphatase 148 U/L (38-126); Aspartate Aminotransferase 53 IU/L (14-36); Bilirubin Total 0.5 mg/dL (0.2-1.3); Blood Urea Nitrogen 15 mg/dL (7-17); Calcium 9.7 mg/dL (8.4-10.2); Carbon Dioxide 30 mmol/L (22-32); Chloride 103 mmol/L (98-107); Estimated Glomerular Filt Rate > 60.0 mL/min (>60); Globulin 3.3 g/dL (1.7-4.1); Glucose 87 mg/dL (80-110); HEMOLYSIS < 15 (0-50); Potassium 4.8 mmol/L (3.4-5.1); Sodium 139 mmol/L (137-145); Total Protein 7.5 g/dL (6.3-8.2)
[2021-02-22 13:23] LABS: NT-proBNP (BNP-Adult 18+) 92 pg/mL (<125)
[2021-02-23 16:31] LABS: Hep C Virus Ab w/Reflex Quant NEGATIVE s/c (NEGATIVE)
== END ==
PROVIDERS: PCP Family Medicine; Referring Provider Family Medicine; Visit Provider Family Medicine
DX: R74.01 Elevation of levels of liver transaminase levels (principal); R06.2 Wheezing
CPT/HCPCS: 36415; 80053; 83880; 86803

== ENCOUNTER → 2021-03-08 12:28 | Outpatient (CLI) | payer BC, SELFPAY ==
[2021-03-08 13:40] LABS: COVID19 -Nasal RAPID Negative (Negative)
== END ==
PROVIDERS: PCP Family Medicine; Referring Provider Internal Medicine; Visit Provider Internal Medicine
DX: Z20.822 Contact with and (suspected) exposure to COVID-19 (principal)
CPT/HCPCS: 87635; C9803

== ENCOUNTER → 2021-03-09 06:59 | Outpatient (CLI) | payer BC, SELFPAY ==
--- NOTE | 2021-03-15 10:16 | PM.PFT.1 ---
Pulmonary Function Test Referral & Results Date Patient Seen: 03/09/21 Requesting provider: Jennifer Vicente Results: The spirometry demonstrates an FVC of 4.12 L which is 112% of predicted. The FEV1 was measured at 2.92 L which is 104% of predicted. The FEV1/FVC ratio was 71 which is 91% of predicted. Following the administration of bronchodilator there was a 20% improvement in FEF 25-75% Lung volumes show an SVC of 4.0 L which is 119% of predicted. The diffusing capacity was measured at 23.82 which is 82% of predicted. No hemoglobin value was provided, so no correction for potential anemia could be made, if appropriate. The maximum voluntary ventilation was normal Interpretation: This study demonstrates normal pulmonary function. There may be a minimal reduction diffusing capacity suggesting the possibility of some element of disease at the capillary alveolar level Clinical correlation suggested
== END ==
PROVIDERS: PCP Family Medicine; Referring Provider Family Medicine; Visit Provider Family Medicine
DX: R06.02 Shortness of breath (principal); R06.2 Wheezing
CPT/HCPCS: 94060; 94726; 94729

== ENCOUNTER → 2021-08-11 13:01 | Outpatient (CLI) | payer BC, SELFPAY ==
[2021-08-11 14:40] LABS: Free T3, Triiodothyronine Free 3.56 pg/mL (2.77-5.27); Free T4, Direct Thyroxine 1.19 ng/dL (0.78-2.19)
[2021-08-12 08:16] LABS: Thyroid Peroxidase Antibodies 9 IU/mL (0-34)
== END ==
PROVIDERS: PCP Family Medicine; Referring Provider Family Medicine; Visit Provider Family Medicine
DX: E06.9 Thyroiditis, unspecified (principal)
CPT/HCPCS: 36415; 84439; 84443; 84481; 86376

== ENCOUNTER → 2021-09-07 11:39 | Outpatient (CLI) | payer BC, SELFPAY ==
--- NOTE | 2021-09-07 11:42 | DI.CT.S_ITS ---
PROCEDURE: CT SOFT TISSUE NECK W CON INDICATIONS: L anterior neck pain to deep palpation, dysphagia TECHNIQUE: Helical axial CT of the neck was obtained after intravenous contrast injection and reformatted in multiple planes. Radiation dose reduction was achieved utilizing automated exposure control and/or parameter adjustment according to patient's size. Area of concern was marked with a skin BB COMPARISON: [facility] Ultrasound, US, US THYROID, 08/01/2021, 10:23. FINDINGS: Skull Base: The visualized intracranial contents, skull, and orbits are unremarkable. Visualized paranasal sinuses are clear. Incidental torus palatini noted. Pharynx and Larynx: The nasopharyngeal airway is patent and midline. Parapharyngeal soft tissues including palatine tonsils and base of the tongue are normal. Retropharyngeal space unremarkable. Normal appearance of the false and true vocal cords. Muscles and Fascial Planes: Fascial planes are well maintained. No abscess or mass lesion. Lymph Nodes: No evidence of adenopathy. Vasculature: Incidental note is made of the left vertebral artery originating directly from the aortic arch, an anatomic variant Submandibular and Parotid Glands: Normal in size and attenuation. Thyroid: Unremarkable. No enlarged or calcified nodules. Bones: No acute fracture. No osteolytic or blastic lesion is evident. Normal bone mineralization. Lung Apices: The visualized lung apices are clear. IMPRESSION: 1. No anatomic CT correlate associated with the area of concern in the right lower neck 2. Normal CT of the neck Approved by: Lisandro Galeano M.D. on 09/07/2021 at 13:15
[2021-09-07 12:37] LABS: BUN Creatinine Ratio 18.6 (6-22); Blood Urea Nitrogen 16 mg/dL (7-17); Estimated Glomerular Filt Rate > 60 mL/min (>60)
[2021-09-07 12:56] LABS: Free T3, Triiodothyronine Free 2.96 pg/mL (2.77-5.27); Free T4, Direct Thyroxine 1.19 ng/dL (0.78-2.19)
[2021-09-07 13:10] LABS: Thyroid Stimulating Hormone 3.29 uIU/mL (0.47-4.68)
== END ==
PROVIDERS: Family Medicine; PCP Family Medicine; Referring Provider Family Medicine; Visit Provider Family Medicine
DX: M54.2 Cervicalgia (principal); Z01.812 Encounter for preprocedural laboratory examination; E03.9 Hypothyroidism, unspecified
CPT/HCPCS: 36415; 70491; 82565; 84439; 84443; 84481; 84520; Q9967

== ENCOUNTER 2021-10-17 21:05 | Emergency (ER) | payer BC, SELFPAY ==
[2021-10-17 21:28] VITALS: BP 113/71; PULSE 62; RESP 18; TEMP 36.6; O2SAT 98
--- NOTE | 2021-10-18 00:43 | ED.WOUNDLAC ---
HPI - Wound/Laceration General Chief Complaint: Wound/Laceration Stated Complaint: stabbed hand while cutting [place] Time Seen by Provider: 10/17/21 23:22 Source: patient Mode of arrival: Ambulatory History of Present Illness HPI narrative: 66-year-old female former smoker with noncontributory medical history presents with a chief complaint of a laceration on her left hand suffered just prior to arrival. She was using a sharp blade and attempting to cut an avocado when it slipped and hit her hand. She will need her tetanus updated. She denies any numbness, tingling or weakness. The bleeding had stopped prior to arrival. She has full range of motion and sensation of her fingers. She is otherwise well and free of complaint Related Data Home Medications Medication Instructions Recorded Confirmed cyanocobalamin (vitamin B-12) 1,000 mcg PO DAILY 10/29/18 12/01/20 1,000 mcg capsule magnesium oxide 400 mg PO DAILY 10/29/18 12/01/20 flaxseed oil 1,000 mg capsule 1,000 mg PO DAILY 11/04/19 12/01/20 lansoprazole 30 mg capsule,delayed 1 cap PO DAILY 03/03/20 12/01/20 release (Prevacid) Previous Rx's Medication Instructions Recorded ibuprofen 600 mg tablet 600 mg PO Q6H PRN painful 03/07/20 procedure #20 tabs albuterol sulfate 90 mcg/actuation 2 puff inhalation Q4-6H PRN 08/25/20 aerosol inhaler (Ventolin HFA) shortness of breath or wheezing #8.5 grams levothyroxine 50 mcg tablet 50 mcg PO DAILY #90 tabs 12/06/20 gabapentin 300 mg capsule 600 mg PO TID #540 caps 07/27/21 Allergies Allergy/AdvReac Type Severity Reaction Status Date / Time adhesive Allergy Severe blisters Verified 08/17/21 15:04 latex Allergy Severe blisters Verified 08/17/21 15:04 meperidine [From DEMEROL] Allergy Unknown Hives Verified 08/17/21 15:04 morphine [MORPHINE] Allergy Unknown Vomiting Verified 08/17/21 15:04 Sulfa (Sulfonamide Allergy Unknown Rash Verified 08/17/21 15:04 Antibiotics) [SULFA (SULFONAMIDE ANTIBIOTICS)] Review of Systems Review of Systems Narrative: GENERAL: Denies chills, fatigue, malaise, fever, sweats. HEENT: Denies sinus pain, ear pain, sore throat, difficulty swallowing, dizziness. RESPIRATORY: Denies dyspnea, cough, wheezing, hemoptysis, sputum. CARDIOVASCULAR: Denies chest pain, palpitations, orthopnea, edema, GASTROINTESTINAL: Denies nausea, vomiting, abdominal pain, diarrhea, constipation, melena. : Denies dysuria, frequency, incontinence, hematuria, urinary retention. MUSCULOSKELETAL: denies weakness, joint pain, or bony pain SKIN: See HPI NEUROLOGIC: Denies weakness, headache, numbness, change in speech, confusion, seizures, incoordination. PSYCHIATRIC: No concerning psychosocial issues. 12 point review of systems is negative except for those stated above Patient History Medical History Anemia Ankle pain Aortic regurgitation (2014) Arthritis Ascending aortic aneurysm (2015) Asplenia Asthma Bradycardia (2013) CAD (coronary artery disease) (2016) Cardiac arrhythmia (2013) Chicken pox (1961) Chronic back pain Closed left clavicular fracture CTS (carpal tunnel syndrome) Depression Esophageal spasm Foot pain Fractures Gastric ulcer (1988) GERD (gastroesophageal reflux disease) (1988) Hayfever Heart murmur Hemorrhoids (1975) Hyperlipidemia (2009) Hypothyroidism (~2007) Knee pain Liver disease Migraines Multiple allergies Muscle spasm (2011) Neuropathy Osteoarthritis Pain Peripheral neuropathy PFO (patent foramen ovale) Pneumonia Recurrent sinusitis Shoulder pain Sinus drainage SVT (supraventricular tachycardia) (2013) Thyroid nodule Ulcer Vertigo (2011) Wrist pain Surgical History Anesthesia complication History of orthopedic surgery (1994) History of right knee surgery (~2013) History of shoulder surgery (03/2017) History of surgery on arm (1996) Hx of arthroscopy of left knee (03/2019) Hx of bilateral cataract extraction Hx of laminectomy (09/22/19) Hx of shoulder surgery (~2015) Status post ablation of ventricular arrhythmia Status post appendectomy (1964) Family History Brother Age: 61 MS (multiple sclerosis) History of back surgery Sister Age: 60 History of back surgery Breast cancer High cholesterol Mental health problem Grandfather Heart attack Heart disease Grandmother Breast cancer Uterine cancer Heart disease Stroke Mother Age: 90 Skin cancer Heart disease Hypertension High cholesterol Mental health problem Stroke Mesenteric ischemia Dementia Sister Age: 67 History of back surgery High cholesterol Brother Scoliosis Chronic back pain Father Motorcycle accident Grandfather Cancer Grandmother Brain lesion Sister Cervical cancer Social History marital status: household members: spouse occupational status: employed Smoking Status: Former smoker alcohol intake: never substance use type: does not use Smoking Status: Former smoker alcohol intake frequency: holidays/special occasions only Substance Use Type: does not use Exam Narrative Exam Narrative: GEN: AOx3 and in mild distress EYES: Pupils are equal, round, and reactive to light and accommodation. Extraoccular muscles are intact bilaterally. There is no subconjunctival hemorrhage or exudate. CHEST: Lungs are clear to auscultation bilaterally and free of wheezes, rales, or rhonchi. Heart rate is regular rhythm, there are no murmurs, clicks, rubs, or gallops. There is no chest wall tenderness. ABD: Abdomen is soft and nontender. There is no guarding or rebound. Bowel sounds are normal in all 4 quadrants. There is no mass or organomegaly. EXT: 1.5 cm irregular, flap type laceration of left thenar eminence without active bleeding, there is some exposed subcutaneous fat. No foreign body noted, no active bleeding. SKIN: Warm, pink, and dry. No erythema or rash Initial Vital Signs Initial Vital Signs: Vital Signs Temperature 97.8 F 10/17/21 21:28 Pulse Rate 62 10/17/21 21:28 Respiratory Rate 18 10/17/21 21:28 Blood Pressure 113/71 10/17/21 21:28 Pulse Oximetry 98 10/17/21 21:28 Oxygen Delivery Method 10/17/21 21:28 Procedures Laceration Repair Laceration 1: Site: hand Side (If applicable): left Size (cm): 1.5 Description: flap Depth: simple, single layer and involves muscle layer Local Anesthetic: lidocaine 2% Amount of anesthesia used (mL): 4 Pre-repair: wound explored, irrigated extensively and cleansed with chlorhexadine Skin layer closed with: nylon Skin layer suture size: 4-0 Number of sutures: 5 Technique: simple, interrupted Course Orders Ordered: Discontinued Medications Diphtheria/Tetanus/Acell Pertussis (Tet,Diph,Pertuss(Acell),Vac/Pf 0.5 Ml Syringe) 0.5 ml IM .ONCE ONE Stop: 10/18/21 00:53 Last Admin: 10/18/21 01:01 Dose: 0.5 ml Documented By: NR Lidocaine HCl (Lidocaine 2% Inj Mdv) 1 ml SUBCUT NOW ONE Stop: 10/18/21 00:53 Last Admin: 10/18/21 01:01 Dose: 1 ml Documented By: NR Vital Signs Vital signs: Vital Signs - 8 hr 10/17/21 21:28 Temperature 97.8 F Pulse Rate 62 Respiratory Rate 18 Blood Pressure 113/71 Pulse Oximetry 98 Oxygen Delivery Method Room Air Discharge Plan Departure Patient Disposition: Home Clinical Impression: Laceration Instructions: DI for Laceration Repair Activity Restrictions/Additional Instructions: Please keep the wound clean and dry to the best of your ability. Please monitor for signs of infection such as redness to the skin or increasing pain. Have the sutures/fer removed by your doctor in about 7 days. If you are unable to get into your doctor, we would be happy to remove the sutures/fer in that same timeframe. Prescriptions: No Action albuterol sulfate [Ventolin HFA] 90 mcg/actuation HFA aerosol inhaler 2 puff Inhalation Q4-6H PRN (Reason: shortness of breath or wheezing) Qty: 8.5 6RF levothyroxine 50 mcg tablet 50 mcg PO DAILY Qty: 90 3RF gabapentin 300 mg capsule 600 mg PO TID Qty: 540 0RF magnesium oxide 400 mg magnesium capsule 400 mg PO DAILY cyanocobalamin (vitamin B-12) 1,000 mcg capsule 1,000 mcg PO DAILY flaxseed oil 1,000 mg capsule 1,000 mg PO DAILY Rx Instructions: administer with a meal lansoprazole [Prevacid] 30 MG capsule,delayed release(DR/EC) 1 cap PO DAILY ibuprofen 600 mg tablet 600 mg PO Q6H PRN (Reason: painful procedure) Qty: 20 0RF Referrals: Jennifer Vicente DO [Primary Care Provider] - Visit Report Forms: Patient Portal/API
[2021-10-18] MEDS: LIDOCAINE 2% INJ MDV 1 ML SUBCUT (01:01)
[2021-10-18] MEDS: TET,DIPH,PERTUSS(ACELL),VAC/PF 0.5 ML SYRINGE IM (01:01)
== END 2021-10-18 01:19 | disposition home or self-care (01) ==
PROVIDERS: Emergency Provider Emergency Medicine; PCP Family Medicine
DX: S61.412A Laceration without foreign body of left hand, initial encounter (principal); W26.0XXA Contact with knife, initial encounter; Z23 Encounter for immunization
CPT/HCPCS: 12001; 90471; 99283; 90715

== ENCOUNTER → 2021-12-04 11:22 | Outpatient (CLI) | payer BC, SELFPAY ==
[2021-12-04 13:03] LABS: Add Manual Diff / Slide Review NO; Basophils Absolute Auto 0 /uL (0-100); Basophils Percent Auto 0.9 % (0-2); Eosinophils Absolute Auto 500 /uL (0-450); Eosinophils Percent Auto 10.9 % (2-4); Hemoglobin 12.6 g/dL (12.0-16.0); Lymphocytes Absolute Auto 1700 /uL (1100-4500); Lymphocytes Percent Auto 39.3 % (25-40); Mean Corpuscular HGB Conc 34.1 % (30-36); Monocytes Absolute Auto 500 /uL (0-900); Monocytes Percent Auto 11.9 % (3-14); Neutrophils Absolute Auto 1600 /uL (1500-7000); Platelet Count 219 X10^3/uL (150-400); Red Blood Cell Count 4.07 X10^6/uL (4.0-5.2); Red Cell Distribution Width 13.1 % (11.6-14.8); White Blood Cell Count 4.2 X10^3/uL (4.5-11.0)
[2021-12-04 14:20] LABS: Alanine Aminotransferase 32 IU/L (<35); Albumin 3.9 g/dL (3.5-5.0); Albumin Globulin Ratio 1.1 (1.0-2.8); Alkaline Phosphatase 108 U/L (38-126); Aspartate Aminotransferase 39 IU/L (14-36); BUN Creatinine Ratio 17.7 (6-22); Bilirubin Total 0.5 mg/dL (0.2-1.3); Blood Urea Nitrogen 17 mg/dL (7-17); Calcium 9.1 mg/dL (8.4-10.2); Carbon Dioxide 29 mmol/L (22-32); Chloride 104 mmol/L (98-107); Cholesterol 162 mg/dL (140-199); Estimated Glomerular Filt Rate > 60 mL/min (>60); Globulin 3.6 g/dL (1.7-4.1); Glucose 86 mg/dL (80-110); HDL Cholesterol 58 mg/dL (40-60); HEMOLYSIS < 15 (0-50); LDL Cholesterol Calculated 94 mg/dL (<100); Potassium 4.1 mmol/L (3.4-5.1); Sodium 141 mmol/L (137-145); Total Protein 7.5 g/dL (6.3-8.2); Triglycerides 50 mg/dL (35-150)
[2021-12-04 15:00] LABS: Thyroid Stimulating Hormone 2.72 uIU/mL (0.47-4.68)
== END ==
PROVIDERS: PCP Family Medicine; Referring Provider Family Medicine; Visit Provider Family Medicine
DX: E03.9 Hypothyroidism, unspecified (principal); I71.2 Thoracic aortic aneurysm, without rupture; Z13.220 Encounter for screening for lipoid disorders; Z79.899 Other long term (current) drug therapy
CPT/HCPCS: 36415; 80053; 80061; 84443; 85025

== ENCOUNTER → 2021-12-28 17:43 | Outpatient (CLI) | payer BC, SELFPAY ==
--- NOTE | 2021-12-28 17:46 | DI.MG.S_ITS ---
BILATERAL DIGITAL SCREENING MAMMOGRAM 3D/2D WITH CAD: 12/28/2021 CLINICAL: Routine screening. Family history of breast cancer. Comparison is made to exams dated: 11/29/2020 mammogram, 10/31/2019 mammogram, and 10/21/2018 mammogram - [facility]. There are scattered areas of fibroglandular density in both breasts (category b / 25%-50% glandular tissue). Current study was also evaluated with a Computer Aided Detection (CAD) system. No significant masses, calcifications, or other findings are seen in either breast. There has been no significant interval change. IMPRESSION: NEGATIVE There is no mammographic evidence of malignancy. A 1 year screening mammogram is recommended. Based on the Tyrer Cuzick model (a risk assessment model) the patient's lifetime risk is 11.5% and her 10 year risk is 5.3%. According to the ACR, ACS, and NCCN guidelines, an annual breast MRI exam along with mammogram is recommended if the patient's lifetime risk is 20% or greater. This exam was interpreted at Station ID: [id number]. NOTE: For mammograms, a report in lay terms will be sent to the patient. Approximately 15% of breast malignancies will not be visualized mammographically. In the management of a palpable breast mass, a negative mammogram must not discourage biopsy of a clinically suspicious lesion. Electronically Signed By: Ralf machado/kang:12/29/2021 11:25:12 letter sent: Normal Exam ACR BI-RADS Category 1: Negative [id number]
== END ==
PROVIDERS: PCP Family Medicine; Referring Provider Family Medicine; Visit Provider Family Medicine
DX: Z12.31 Encounter for screening mammogram for malignant neoplasm of breast (principal); Z80.3 Family history of malignant neoplasm of breast
CPT/HCPCS: 77063; 77067

== ENCOUNTER → 2022-05-15 10:05 | Outpatient (CLI) | payer BC, SELFPAY ==
--- NOTE | 2022-05-15 | DI.RAD.S_ITS ---
PROCEDURE: FL BARIUM SWALLOW INDICATIONS: Dysphagia, pharyngoesophageal phase COMPARISON: None. FINDINGS: Function: There is mild esophageal dysmotility. No elicited gastroesophageal reflux. There is normal transit of a calibrated barium tablet through the esophagus into the stomach. Morphology: Air-contrast images demonstrate normal mucosal morphology. Single contrast views show no esophageal strictures, extrinsic mass effects, or diverticula. Limited images of the stomach demonstrate normal appearance. IMPRESSION: 1. Mild esophageal dysmotility. Dictated by: Josefina Alcantara M.D. on 05/15/2022 at 13:20 Approved by: Josefina Alcantara M.D. on 05/15/2022 at 13:22
== END ==
PROVIDERS: PCP Family Medicine; Referring Provider Internal Medicine Gastroenterology; Visit Provider Internal Medicine Gastroenterology
DX: R13.14 Dysphagia, pharyngoesophageal phase (principal); K22.4 Dyskinesia of esophagus
CPT/HCPCS: 74220

== ENCOUNTER → 2022-05-26 08:39 | Outpatient (CLI) | payer BC, SELFPAY ==
--- NOTE | 2022-05-26 08:41 | DI.MRI.S_ITS ---
PROCEDURE: MR THORACIC SPINE WO CON INDICATIONS: Thoracic back pain at approx T9-T10 radiates to right side TECHNIQUE: Noncontrast sagittal T1 spine echo and T2 fast spin echo, sagittal STIR, and T2 fast spin echo through the thoracic spine. COMPARISON: [facility], MR, MR CERVICAL SPINE WO CON, 01/18/2021, 13:24. FINDINGS: Image quality: Excellent. Alignment and Curvature: There is normal bony alignment. Minimal anterior vertebral body height of multiple contiguous midthoracic vertebral bodies results in mild increased thoracic kyphosis. Bone Marrow: Marrow is of normal overall signal. No acute vertebral body compression fractures. Spinal Cord: Visualized spinal cord is normal in size and signal. Paraspinous Soft Tissues: No paravertebral masses. Miscellaneous: On axial images, central canal and foramina appear widely patent at all scanned levels. At T5-T6, there is mild right paracentral disc protrusion which may impinge on the ventral horn of the right T5 nerve root in the right lateral recess. There is no canal stenosis. At T6-T7, there is minimal flat right paracentral disc protrusion without nerve root impingement. No canal stenosis. There are disc bulges without canal stenosis at T7-T8 and T8-T9. At T9-T10, there is a very shallow right paracentral disc protrusion without canal stenosis. IMPRESSION: 1. No canal stenosis or foraminal stenosis. 2 at T5-T6, there is a right paracentral disc protrusion which may impinge on the ventral horn of the right T5 nerve root in the right lateral recess. 3. At T9-T10, there is a shallow right paracentral disc protrusion without canal stenosis. Dictated by: Gabe Carvalho M.D. on 05/28/2022 at 8:46 Approved by: Gabe Carvalho M.D. on 05/28/2022 at 8:51
== END ==
PROVIDERS: PCP Family Medicine; Referring Provider Physician Assistant; Visit Provider Physician Assistant
DX: M51.24 Other intervertebral disc displacement, thoracic region (principal); M51.9 Unspecified thoracic, thoracolumbar and lumbosacral intervertebral disc disorder; M62.838 Other muscle spasm; M99.79 Connective tissue and disc stenosis of intervertebral foramina of abdomen and other regions
CPT/HCPCS: 72146

== ENCOUNTER → 2022-11-15 18:38 | Outpatient (CLI) | payer BC, SELFPAY | PROVIDERS: PCP Family Medicine; Visit Provider Nurse Practitioner Family | DX: S80.829A Blister (nonthermal), unspecified lower leg, initial encounter (principal) | CPT/HCPCS: 87070; 87075; 87205; 87252 ==

== ENCOUNTER → 2022-12-06 14:20 | Outpatient (CLI) | payer BC, SELFPAY ==
[2022-12-06 14:39] LABS: Hematocrit 40.9 % (36-46); Hemoglobin 13.8 g/dL (12.0-16.0); Mean Corpuscular HGB Conc 33.7 % (30-36); Mean Corpuscular Volume 94.9 fL (80-100); Platelet Count 288 X10^3/uL (150-400); Red Blood Cell Count 4.31 X10^6/uL (4.0-5.2); Red Cell Distribution Width 13.4 % (11.6-14.8); White Blood Cell Count 4.9 X10^3/uL (4.5-11.0)
[2022-12-06 14:50] LABS: Alanine Aminotransferase 47 IU/L (<35); Albumin 4.1 g/dL (3.5-5.0); Albumin Globulin Ratio 1.2 (1.0-2.8); Alkaline Phosphatase 102 U/L (38-126); Aspartate Aminotransferase 39 IU/L (14-36); BUN Creatinine Ratio 20.2 (6-22); Bilirubin Total 0.6 mg/dL (0.2-1.3); Blood Urea Nitrogen 17 mg/dL (7-17); Calcium 9.2 mg/dL (8.4-10.2); Carbon Dioxide 29 mmol/L (22-32); Chloride 104 mmol/L (98-107); Cholesterol 168 mg/dL (140-199); Estimated Glomerular Filt Rate > 60 mL/min (>60); Globulin 3.4 g/dL (1.7-4.1); Glucose 101 mg/dL (80-110); HDL Cholesterol 57 mg/dL (40-60); HEMOLYSIS < 15 (0-50); LDL Cholesterol Calculated 96 mg/dL (<100); Potassium 4.4 mmol/L (3.4-5.1); Sodium 139 mmol/L (137-145); Total Protein 7.5 g/dL (6.3-8.2); Triglycerides 76 mg/dL (35-150)
[2022-12-06 15:20] LABS: TSH w/ Reflex to FT4 1.43 uIU/mL (0.47-4.68)
== END ==
PROVIDERS: PCP Internal Medicine; Referring Provider Internal Medicine; Visit Provider Internal Medicine
DX: I47.1 Supraventricular tachycardia (principal); E78.2 Mixed hyperlipidemia; I67.9 Cerebrovascular disease, unspecified; E03.9 Hypothyroidism, unspecified
CPT/HCPCS: 36415; 80053; 80061; 84443; 85027

== ENCOUNTER → 2022-12-14 11:38 | Outpatient (CLI) | payer BC, SELFPAY ==
--- NOTE | 2022-12-14 11:40 | DI.RAD.S_ITS ---
Bone Density Report Name: LYNSEY RIVAS Age: 67 Sex: Female Ethnicity: White Date of : 1955 Indication: postmenopausal; screening for osteoporosis; Referring Provider: ANIA TEJADA Study: Bone densitometry was performed. Exam Date: December 14, 2022 Accession number: [id number] Bone Density: Region BMD T-score Z-score Classification AP Spine(L1-L4) 1.006 -0.4 1.4 Normal Femoral Neck (Left) 0.801 -0.4 1.1 Normal Total Hip (Left) 0.917 -0.2 1.0 Normal Femoral Neck (Right) 0.777 -0.6 0.9 Normal Total Hip (Right) 0.920 -0.2 1.1 Normal Total Hip Mean 0.919 -0.2 1.1 Normal World Health Organization criteria for BMD impression classify patients as: Normal (T-score at or above -1.0), Osteopenia (T-score between -1.0 and -2.5), or Osteoporosis (T-score at or below -2.5). 10-year Fracture Risk: FRAX not reported because: All T-scores for Spine Total, Hip Total, Femoral Neck at or above -1.0 Impression: The patient has normal bone mass. Discussion: BONE DENSITY IS ABOVE THE MINIMUM DESIRABLE LEVEL AT ALL SKELETAL SITES TESTED. This patient's bone mineral density is above the minimum desirable level (T-score -1.0 or better) at all sites measured. The patient should follow a healthful lifestyle (good nutrition with adequate calcium and vitamin D, and appropriate weight-bearing exercise). Follow-Up: Consider repeating this study in 5 years or sooner if there is some new clinical indication. Reported by: NELSON MACARIO M.D. on 12/14/2022 12:12:00 PM.
== END ==
PROVIDERS: PCP Internal Medicine; Referring Provider Internal Medicine; Visit Provider Internal Medicine
DX: Z78.0 Asymptomatic menopausal state (principal)
CPT/HCPCS: 77080

== ENCOUNTER → 2023-01-24 08:31 | Outpatient (CLI) | payer BC, SELFPAY ==
--- NOTE | 2023-01-24 | DI.MG.S_ITS ---
BILATERAL DIGITAL SCREENING MAMMOGRAM 3D/2D WITH CAD: 01/24/2023 CLINICAL: Routine screening. Family history of breast cancer. Comparison is made to exams dated: 12/28/2021 mammogram, 11/29/2020 mammogram, 10/31/2019 mammogram, and 10/21/2018 mammogram - [facility]. There are scattered areas of fibroglandular density in both breasts (category b / 25%-50% glandular tissue). Current study was also evaluated with a Computer Aided Detection (CAD) system. No significant masses, calcifications, or other findings are seen in either breast. There has been no significant interval change. IMPRESSION: NEGATIVE There is no mammographic evidence of malignancy. A 1 year screening mammogram is recommended. Based on the Tyrer Cuzick model (a risk assessment model) the patient's lifetime risk is 11.0% and her 10 year risk is 5.3%. According to the ACR, ACS, and NCCN guidelines, an annual breast MRI exam along with mammogram is recommended if the patient's lifetime risk is 20% or greater. This exam was interpreted at Station ID: [id number]. NOTE: For mammograms, a report in lay terms will be sent to the patient. Approximately 15% of breast malignancies will not be visualized mammographically. In the management of a palpable breast mass, a negative mammogram must not discourage biopsy of a clinically suspicious lesion. Electronically Signed By: Danial ren/kang:01/24/2023 14:03:27 letter sent: Normal Exam ACR BI-RADS Category 1: Negative 3341F
== END ==
PROVIDERS: PCP Internal Medicine; Referring Provider Internal Medicine; Visit Provider Internal Medicine
DX: Z12.31 Encounter for screening mammogram for malignant neoplasm of breast (principal); Z80.3 Family history of malignant neoplasm of breast
CPT/HCPCS: 77063; 77067

== ENCOUNTER → 2023-04-15 08:06 | Outpatient (CLI) | payer BC, SELFPAY ==
--- NOTE | 2023-04-15 08:07 | DI.ECHO.S_ITS ---
[facility] +---------+ : : [address] : : : : [id number] : : : : Phone: [phone]+ Echocardiogram Report + + :Name: LYNSEY RIVAS Study Date: 04/15/2023 Height: 67.5 in: :[facility] ReadingLocation: Weight: 170 lb : : Gender: Female BSA: 1.9 m2 : :: 1955 Age: 67 yrs BP: 112/74 mmHg: :Reason For Study: AORTIC REGURGITATION : :Ordering Physician: TERRELL, : :ANIA Performed By: Liane Montoya : :Referring: ANIA TEJADA : + + Interpretation Summary The left ventricle is normal in size and wall thickness. The left ventricular ejection fraction is normal. The ejection fraction is estimated to be 60-65%. No significant change in LVEF from the previous study. The right ventricle is normal in size and function. Positive bubble study on 07/28/2020 There is moderate aortic regurgitation. Compared to the prior echo study, there has been no change in the severity of aortic regurgitation. There is mild to moderate tricuspid regurgitation. Previously mild TR. The right ventricular systolic pressure is estimated to be at least 26 mmHg based on an estimated right atrial pressure of 3 mm Hg. The IVC is of normal diameter and collapses greater than 50% with a sniff. This suggests a low right atrial pressure of 3 mm Hg. The ascending aorta is mildly enlarged. 4.0 cm in diameter. Previously 4.0 cm in diameter as well. Procedure: A two-dimensional transthoracic echocardiogram with color flow and Doppler was performed. The study quality was technically adequate. Comparison is made with the echocardiogram of 07/28/2020. The patient was in sinus bradycardia with heart rates between 55-61 bpm during the exam. Left Ventricle: The left ventricle is normal in size and wall thickness. There is no thrombus. The ejection fraction is estimated to be 60-65%. The left ventricular ejection fraction is normal. There are no focal wall motion abnormalities. Diastolic parameters suggest a relaxation abnormality of the left ventricle, consistent with probable normal filling pressures. Right Ventricle: The right ventricle is normal in size and function. Atria: The left atrium is mildly dilated. The left atrium has mildly increased in size since the prior echo exam. Right atrial size is normal. Positive bubble study on 07/28/2020. Mitral Valve: The mitral valve is normal in structure and function. There is trace mitral regurgitation. Aortic Valve: The aortic valve is trileaflet. The aortic valve opens well. There is no aortic valve stenosis. There is moderate aortic regurgitation. Compared to the prior echo study, there has been no change in the severity of aortic regurgitation. Tricuspid Valve: The tricuspid valve is normal. There is mild to moderate tricuspid regurgitation. The right ventricular systolic pressure is estimated to be at least 26 mmHg based on an estimated right atrial pressure of 3 mm Hg. Pulmonic Valve: The pulmonic valve leaflets are thin and pliable; valve motion is normal. There is mild pulmonic regurgitation. Great Vessels: The aortic root is normal size. The ascending aorta is mildly enlarged. There has been no significant change since the previous study. The IVC is of normal diameter and collapses greater than 50% with a sniff. This suggests a low right atrial pressure of 3 mm Hg. Pericardium/ Pleura There is no pericardial effusion. There is no pleural effusion. MMode/2D Measurements & Calculations LVIDd: 4.6 cm LVOT diam: 2.2 cm LVIDs: 3.2 cm Ao root diam: 3.5 cm FS: 31.4 % asc Aorta Diam: 4.0 cm EPSS: 0.90 cm Ao Arch Diam (Prox Trans): 3.0 cm IVSd: 0.86 cm LVPWd: 0.93 cm LV bernal. diameter/BSA (cm/m^2): 2.4 LV sys. diameter/BSA (cm/m^2): 1.7 LA A2 area: 24.4 cm2 RA long axis: 5.5 cm LA A4 area: 15.9 cm2 RA area: 19.2 cm2 LA length (vol): 5.0 cm RA vol: 56.9 ml LA vol: 65.6 ml RA : 30.0 ml/m2 LA vol index: 34.5 ml/m2 IVC diam: 1.8 cm RVD1 (basal): 4.0 cm TAPSE: 2.0 cm Doppler Measurements & Calculations Ao V2 max: 157.2 cm/sec LVOT Max Darvin: 129.7 cm/sec Ao V2 mean: 106.9 cm/sec LV V1 max P.7 mmHg Ao max P.9 mmHg LV V1 VTI: 28.5 cm Ao mean P.1 mmHg DECLAN(I,D): 3.1 cm2 Ao V2 VTI: 35.8 cm DECLAN(V,D): 3.3 cm2 sev ratio: 0.80 DECLAN indexed to BSA (cm^2/m^2): 1.7 AI P1/2t: 923.8 msec AI dec slope: 129.2 cm/sec2 MV E max darvin: 69.5 cm/sec TR max darvin: 241.2 cm/sec MV A max darvin: 85.6 cm/sec TR max P.3 mmHg MV E/A: 0.81 PA V2 max: 71.2 cm/sec Med Peak E' Darvin: 8.3 cm/sec PA V2 mean: 55.4 cm/sec E/E' med: 8.4 PA mean P.3 mmHg Lat Peak E' Darvin: 10.4 cm/sec PA pr(Accel): 7.1 mmHg E/E' lat: 6.7 E/e' average: 7.5 MV dec time: 0.26 sec SV(LVOT): 112.3 ml Reading Physician:02:05 PM
== END ==
LOC: ECHO 08:06
PROVIDERS: PCP Internal Medicine; Referring Provider Internal Medicine; Visit Provider Internal Medicine
DX: I08.2 Rheumatic disorders of both aortic and tricuspid valves (principal); Q21.10 Atrial septal defect, unspecified; I47.10 Supraventricular tachycardia, unspecified; I71.20 Thoracic aortic aneurysm, without rupture, unspecified; I77.89 Other specified disorders of arteries and arterioles
CPT/HCPCS: 93306

== ENCOUNTER 2023-06-01 13:55 | Emergency (ER) | payer BC, SELFPAY ==
[2023-06-01 14:00] VITALS: BP 141/74; PULSE 59; RESP 16; TEMP 36.4; O2SAT 98; BMI 26.2
--- NOTE | 2023-06-01 14:04 | DI.RAD.S_ITS ---
PROCEDURE: XR STERNUM MIN 2V INDICATIONS: Midsternal pain after fall TECHNIQUE: 2 views of the sternum acquired. COMPARISON: None. FINDINGS: Bones: No fractures or dislocations. No suspicious bony lesions. Soft tissues: Retrosternal soft tissues appear normal. IMPRESSION: No definite fracture is seen. Dictated by: Herman Mercado M.D. on 06/01/2023 at 14:50 Approved by: Herman Mercado M.D. on 06/01/2023 at 14:51
--- NOTE | 2023-06-01 14:05 | ED_ITS ---
HPI - Wound/Laceration General Chief Complaint: Wound/Laceration Stated Complaint: Rside eye bleeding GLF/trip on stairs Time Seen by Provider: 06/01/23 14:00 Source: patient Mode of arrival: Ambulatory History of Present Illness HPI narrative: Patient is a 67-year-old female. Not on anticoagulation. Has left arm in a sling from a rotator cuff surgery several weeks ago who is here for evaluation of injuries that she sustained when she fell. States she tripped going up some stairs. She did hit the right side of her face. No loss of consciousness. She does report some sternal pain but no problems breathing. No extremity injuries. No new pain to her left shoulder left arm. No hip pain. Is ambulatory. No loose teeth or missing teeth. No vision changes. She states that her neck feels funny as well. Related Data Home Medications Medication Instructions Recorded Confirmed cyanocobalamin (vitamin B-12) 1,000 mcg PO DAILY 10/29/18 03/07/23 1,000 mcg capsule magnesium oxide 400 mg PO DAILY 10/29/18 03/07/23 aspirin 81 mg tablet,delayed 243 mg PO DAILY Amerosa fugax 06/12/22 03/07/23 release cyclosporine 0.05 % eye drops in a 1 drp EYE-BOTH 06/12/22 03/07/23 dropperette (Restasis) omega 4-noy-meu-fish oil 60 mg-90 1 cap PO BID 06/12/22 03/07/23 mg-500 mg capsule (Fish Oil) acetaminophen 500 mg tablet 1,000 mg PO DAILY PRN As needed 12/06/22 03/07/23 (Tylenol Extra Strength) for pain loratadine 10 mg tablet 10 mg PO DAILY PRN As needed for 12/06/22 03/07/23 allergies omeprazole 20 mg capsule,delayed 20 mg PO DAILY PRN 12/06/22 03/07/23 release mexiletine 150 mg capsule 300 mg PO BID 03/07/23 03/07/23 Previous Rx's Medication Instructions Recorded albuterol sulfate 90 mcg/actuation 2 puff inhalation Q4-6H PRN 08/25/20 aerosol inhaler (Ventolin HFA) shortness of breath or wheezing #8.5 grams ibuprofen 600 mg tablet 600 mg PO Q6H PRN painful 05/15/22 procedure #60 tabs mupirocin 2 % topical ointment 1 applic topical TID #15 grams 11/15/22 atorvastatin 20 mg tablet 20 mg PO BEDTIME #90 tabs 12/06/22 duloxetine 60 mg capsule,delayed 60 mg PO DAILY #90 caps 12/06/22 release gabapentin 300 mg capsule See Rx Instructions .Route 12/06/22 .COMPLEX #540 caps levothyroxine 50 mcg tablet See Rx Instructions .Route 12/06/22 .COMPLEX #90 tabs dicyclomine 10 mg capsule 10 mg PO TID PRN abdominal pain 04/03/23 #30 caps Allergies Allergy/AdvReac Type Severity Reaction Status Date / Time adhesive Allergy Severe blisters Verified 06/01/23 14:02 latex Allergy Severe blisters Verified 06/01/23 14:02 meperidine [From DEMEROL] Allergy Unknown Hives Verified 06/01/23 14:02 morphine [MORPHINE] Allergy Unknown Vomiting Verified 06/01/23 14:02 Sulfa (Sulfonamide Allergy Unknown Rash Verified 06/01/23 14:02 Antibiotics) [SULFA (SULFONAMIDE ANTIBIOTICS)] Review of Systems Review of Systems ROS Unobtainable: All systems reviewed & are unremarkable except as noted in HPI and below Patient History Medical History Irritable bowel syndrome with constipation Depression, major, recurrent Primary osteoarthritis involving multiple joints History of colonic polyps Chronic low back pain Allergic rhinitis Asthma, mild intermittent GERD without esophagitis Mixed hyperlipidemia Cerebrovascular disease PFO (patent foramen ovale) Depression Ulcer Sinus drainage Pneumonia Peripheral neuropathy Hayfever Migraines Wrist pain Fractures Foot pain Chronic back pain CTS (carpal tunnel syndrome) Chicken pox (1961) Vertigo (2011) Recurrent sinusitis Asplenia Esophageal spasm Hemorrhoids (1975) GERD (gastroesophageal reflux disease) (1988) Gastric ulcer (1988) Thyroid nodule Aortic regurgitation (2014) Paroxysmal supraventricular tachycardia (12/04/16) Closed left clavicular fracture Surgical History Hx of shoulder surgery (~2015) Hx of bilateral cataract extraction Hx of arthroscopy of left knee (03/2019) Hx of laminectomy (09/22/19) Status post ablation of ventricular arrhythmia Anesthesia complication History of shoulder surgery (03/2017) History of right knee surgery (~2013) History of orthopedic surgery (1994) History of surgery on arm (1996) Status post appendectomy (1964) Family History Brother Age: 63 MS (multiple sclerosis) History of back surgery Sister Age: 62 History of back surgery Breast cancer High cholesterol Mental health problem Grandfather Heart attack Heart disease Grandmother Breast cancer Uterine cancer Heart disease Stroke Mother Age: 92 Skin cancer Heart disease Hypertension High cholesterol Mental health problem Stroke Mesenteric ischemia Dementia Sister Age: 69 History of back surgery High cholesterol Brother Scoliosis Chronic back pain Father Motorcycle accident Grandfather Cancer Grandmother Brain lesion Sister Cervical cancer Social History marital status: details: , 2 grown children, 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 household members: spouse occupational status: employed Smoking Status: Former smoker alcohol intake: never substance use type: does not use Smoking Status: Former smoker alcohol intake frequency: holidays/special occasions only Substance Use Type: does not use Exam Initial Vital Signs Initial Vital Signs: Vital Signs Temperature 97.6 F 06/01/23 14:00 Pulse Rate 59 L 06/01/23 14:00 Respiratory Rate 16 06/01/23 14:00 Blood Pressure 141/74 H 06/01/23 14:00 Pulse Oximetry 98 06/01/23 14:00 Oxygen Delivery Method Room Air 06/01/23 14:00 Const General: cooperative, comfortable and No ill appearing HENMT Head: other (2 cm laceration to the upper lateral aspect of the right eye) Eyes EOM: EOM intact bilaterally Chest Other: Tenderness over the sternum but no crepitus. Resp Effort & Inspection: normal respiratory effort Auscultation: clear to auscultation bilaterally Cardio Rate: regular rate GI Inspection: normal to inspection Back/Spine/Pelvis Cervical Spine: cervical muscular tenderness and cervical spinal tenderness Skin Other: 2 cm laceration to the upper outer aspect of the right eye. Neuro General: patient alert, patient awake and patient oriented x3 Extrem Other: Left arm in sling. No other gross abnormalities Procedures Laceration Repair Laceration 1: Site: face Side (If applicable): right Size (cm): 2 Description: linear Depth: simple, single layer Local Anesthetic: lidocaine 1% Amount of anesthesia used (mL): 4 Pre-repair: wound explored, irrigated extensively and deep structures intact Skin layer closed with: nylon Skin layer suture size: 5-0 Number of sutures: 3 Technique: simple, interrupted Scores [place] CT Head Rule Age <16 years old: No Patient on blood thinners: No Seizure after injury: No Exclusion: Patient NOT Excluded, Proceed to next steps GCS < 15 at 2 hr post trauma: No Suspected open or depressed skull fracture: No Any sign of basilar skull fracture (hemotympanum, raccoon eyes, Hoff's sign, CSF robbin-/rhinorrhea): No Two or more episodes of vomiting: No Age greater or equal to 65 years: Yes Retrograde amnesia to the event greater or equal to 30 min: No Dangerous Mechanism (pedestrian vs. mv, occupant ejected from mv, fall from >3 ft or > 5 stairs): No Recommendation: Consider CT. The [place] Head CT Rule cannot rule out need for Imaging. GCS [place] coma scale eye opening: Spontaneous [place] coma scale verbal response: Orientated [place] coma scale motor response: Obey commands [place] coma scale total score: 15 Nexus Score for C-Spine Focal Neurologic deficit present: No Midline spinal tenderness present: Yes Altered level of conciousness present: No Intoxication present: No Distracting Injury Present: No Nexus Criteria for C-spine: 1 Course Orders Ordered: ED Orders 06/01/23 14:04 CT cervical spine wo con Stat CT head/brain wo con Stat XR sternum min 2V Stat Vital Signs Vital signs: Vital Signs - 8 hr 06/01/23 14:00 Temperature 97.6 F Pulse Rate 59 L Respiratory Rate 16 Blood Pressure 141/74 H Pulse Oximetry 98 Oxygen Delivery Method Room Air MDM - Wound/Laceration Imaging Data Sternum x-ray: Radiologist's Impression: PROCEDURE: XR STERNUM MIN 2V INDICATIONS: Midsternal pain after fall TECHNIQUE: 2 views of the sternum acquired. COMPARISON: None. FINDINGS: Bones: No fractures or dislocations. No suspicious bony lesions. Soft tissues: Retrosternal soft tissues appear normal. IMPRESSION: No definite fracture is seen. CT scan - head: Radiologist's Impression: ROCEDURE: CT HEAD/BRAIN WO CON INDICATIONS: fall hit head iwth r eye injury TECHNIQUE: Noncontrast 4.5 mm thick angled axial sections acquired from the foramen magnum to the vertex, with coronal and sagittal reformats. For radiation dose reduction, the following was used: automated exposure control, adjustment of mA and/or kV according to patient size. COMPARISON: [facility], CT, CT HEAD/BRAIN WO CON, 08/04/2020, 14:47. FINDINGS: Image quality: Diagnostic. CSF spaces: Basal cisterns are patent. No extra-axial fluid collections. Ventricles are normal in size and shape. Brain: No midline shift. No intracranial masses or hemorrhage. Bearden-white matter interface is normal. Skull and face: Calvarium and visualized facial bones are intact, without suspicious lesions. Sinuses: Visualized sinuses and mastoids are clear. IMPRESSION: No acute intracranial pathology CT - cervical spine: Radiologist's Impression: PROCEDURE: CT CERVICAL SPINE WO CON INDICATIONS: fall hit head with R sided paraspinal and midline pain TECHNIQUE: Noncontrast 3 mm thick sections acquired from the skull base to the T4 level. Sagittal and coronal reformats were then constructed. For radiation dose reduction, the following was used: automated exposure control, adjustment of mA and/or kV according to patient size. COMPARISON: [facility], CT, CT CERVICAL SPINE WO CON, 08/04/2020, 14:47. FINDINGS: Image quality: Excellent. Bones: No fractures or dislocations. Mild degenerative changes of the cervical spine. Visualized superior ribs are intact. Soft tissues: Prevertebral soft tissues are normal in thickness. No paravertebral hematomas. No apical pneumothoraces. IMPRESSION: No displaced fracture or traumatic subluxation. [facility] Narrative Medical decision making narrative: CT scans and x-ray show no acute pathology. The wound above her right eye was closed as described above and she was given care instructions and return precautions and follow-up instructions for this. Will discharge home with return precautions. She expressed understanding and agreement with plan. Discharge Plan Departure Patient Disposition: Home Clinical Impression: Laceration Instructions: DI for Laceration Repair Activity Restrictions/Additional Instructions: The stitches do need removed in the next 7-10 days. This can be done at either your primary care doctor's office or the walk-in clinic. You can put topical antibiotic ointment such as bacitracin or Neosporin over the area. Would also recommend some ice. Continue to take all of your medicines as directed. Return to the emergency department for new symptoms. Prescriptions: No Action ibuprofen 600 mg tablet 600 mg PO Q6H PRN (Reason: painful procedure) Qty: 60 0RF cyclosporine [Restasis] 0.05 % dropperette 1 drp EYE-BOTH Patient Comments: INSTILL 1 DROP INTO BOTH EYES EVERY 12 HOURS omega 4-flu-nvy-fish oil [Fish Oil] 60-90-500 mg capsule 1 cap PO BID aspirin 81 mg tablet,delayed release (DR/EC) 243 mg PO DAILY acetaminophen [Tylenol Extra Strength] 500 mg tablet 1,000 mg PO DAILY PRN (Reason: As needed for pain) loratadine 10 mg tablet 10 mg PO DAILY PRN (Reason: As needed for allergies) omeprazole 20 mg capsule,delayed release(DR/EC) 20 mg PO DAILY PRN mexiletine 150 mg capsule 300 mg PO BID mupirocin 2 % ointment 1 applic topical TID Qty: 15 0RF albuterol sulfate [Ventolin HFA] 90 mcg/actuation HFA aerosol inhaler 2 puff Inhalation Q4-6H PRN (Reason: shortness of breath or wheezing) Qty: 8.5 6RF dicyclomine 10 mg capsule 10 mg PO TID PRN (Reason: abdominal pain) Qty: 30 12RF magnesium oxide 400 mg magnesium capsule 400 mg PO DAILY cyanocobalamin (vitamin B-12) 1,000 mcg capsule 1,000 mcg PO DAILY atorvastatin 20 mg tablet 20 mg PO BEDTIME Qty: 90 3RF duloxetine 60 mg capsule,delayed release(DR/EC) 60 mg PO DAILY Qty: 90 3RF levothyroxine 50 mcg tablet See Rx Instructions .ROUTE .COMPLEX Qty: 90 3RF Dose Instruction: take 1 tablet by mouth once daily Rx Instructions: take 1 tablet by mouth once daily gabapentin 300 mg capsule See Rx Instructions .ROUTE .COMPLEX Qty: 540 3RF Dose Instruction: TAKE 2 TABLETS BY MOUTH THREE TIMES DAILY Rx Instructions: TAKE 2 TABLETS BY MOUTH THREE TIMES DAILY Referrals: Sammy Altman MD [Primary Care Provider] - Stand Alone Forms: Patient Portal/API
[2023-06-01] MEDS: BACITRACIN OINT 0.9 GM PCKT 1 APPLIC TOP (15:17)
[2023-06-01 15:24] VITALS: BP 127/69; PULSE 75; RESP 18; O2SAT 98
== END 2023-06-01 15:28 | disposition home or self-care (01) ==
PROVIDERS: Emergency Provider Emergency Medicine; PCP Internal Medicine
DX: S01.81XA Laceration without foreign body of other part of head, initial encounter (principal); M54.2 Cervicalgia; R07.89 Other chest pain; W01.198A Fall on same level from slipping, tripping and stumbling with subsequent striking against other object, initial encounter
CPT/HCPCS: 12011; 70450; 71120; 72125; 99284

== ENCOUNTER → 2024-01-21 10:59 | Outpatient (CLI) | payer MEDICARE, OTHER, SELFPAY ==
[2024-01-21 12:35] LABS: Hematocrit 36.2 % (36-46); Hemoglobin 12.3 g/dL (12.0-16.0); Mean Corpuscular HGB Conc 33.9 % (30-36); Mean Corpuscular Hemoglobin 31.9 PG (26-34); Mean Corpuscular Volume 94.2 fL (80-100); Platelet Count 209 X10^3/uL (150-400); Red Blood Cell Count 3.85 X10^6/uL (4.0-5.2); Red Cell Distribution Width 13.2 % (11.6-14.8)
[2024-01-21 13:07] LABS: Alanine Aminotransferase 20 IU/L (<35); Albumin 3.9 g/dL (3.5-5.0); Albumin Globulin Ratio 1.4 (1.0-2.8); Alkaline Phosphatase 90 U/L (38-126); Aspartate Aminotransferase 35 IU/L (14-36); BUN Creatinine Ratio 22.9 (6-22); Bilirubin Total 0.5 mg/dL (0.2-1.3); Blood Urea Nitrogen 19 mg/dL (7-17); Calcium 9.4 mg/dL (8.4-10.2); Carbon Dioxide 28 mmol/L (22-32); Chloride 107 mmol/L (98-107); Cholesterol 154 mg/dL (140-199); Estimated Glomerular Filt Rate > 60 mL/min (>60); Globulin 2.8 g/dL (1.7-4.1); Glucose 89 mg/dL (80-110); HDL Cholesterol 73 mg/dL (40-60); HEMOLYSIS < 15 (0-50); LDL Cholesterol Calculated 68 mg/dL (<100); Potassium 4.4 mmol/L (3.4-5.1); Sodium 138 mmol/L (137-145); Total Protein 6.7 g/dL (6.3-8.2); Triglycerides 65 mg/dL (35-150)
[2024-01-21 13:34] LABS: TSH w/ Reflex to FT4 2.43 uIU/mL (0.47-4.68)
[2024-01-21 13:53] LABS: Vitamin B12 424 pg/mL (239-931)
== END ==
PROVIDERS: PCP Internal Medicine; Referring Provider Internal Medicine; Visit Provider Internal Medicine
DX: E78.2 Mixed hyperlipidemia (principal); E53.8 Deficiency of other specified B group vitamins; E03.9 Hypothyroidism, unspecified; I47.10 Supraventricular tachycardia, unspecified; I71.21 Aneurysm of the ascending aorta, without rupture; I35.1 Nonrheumatic aortic (valve) insufficiency; K21.9 Gastro-esophageal reflux disease without esophagitis; K75.81 Nonalcoholic steatohepatitis (NASH); F33.41 Major depressive disorder, recurrent, in partial remission; J45.20 Mild intermittent asthma, uncomplicated; J30.89 Other allergic rhinitis; M54.40 Lumbago with sciatica, unspecified side; G62.9 Polyneuropathy, unspecified
CPT/HCPCS: 36415; 80053; 80061; 82607; 84443; 85027

== ENCOUNTER → 2024-05-11 13:18 | Outpatient (CLI) | payer MEDICARE, OTHER, SELFPAY ==
--- NOTE | 2024-05-11 13:23 | DI.MRI.S_ITS ---
PROCEDURE: MR SHOULDER LT W CON INDICATIONS: BANKART LESION RT SHOULDER,TEAR ROTATOR CUFF TECHNIQUE: After the administration of 12 mL of dilute intra-articular Gadolinium contrast, oblique coronal T1 and T2 spin echo with fat saturation, oblique sagittal T1 spin echo with and without fat saturation, oblique sagittal T2 fast spin echo with fat saturation, axial T1 spin echo with fat saturation through the shoulder. COMPARISON: [facility], MR, MR SHOULDER LEFT ARTHROGRAM, 03/20/2023, 11:26. [facility], RF, [place] ARTHROGRAM SHOULDER LT, 05/11/2024, 13:44. FINDINGS: Image quality: Excellent. Rotator cuff: Postsurgical changes from prior rotator cuff tendon repair with multiple anchors in the greater tuberosity. There is heterogeneity of the distal supraspinatus and infraspinatus tendons without a recurrent full-thickness tear. Teres minor and subscapularis tendons are intact. Rotator cuff muscles are normal in signal intensity and bulk. Bones and bursae: No acute trabecular bone injury or fracture. Surgical anchors are seen in the greater tuberosity. Partial-thickness cartilage irregularity is seen in the glenohumeral joint with small marginal osteophytes. Postsurgical widening of the acromioclavicular joint without recurrent narrowing of the supraspinatus outlet. No significant fluid or contrast material is seen within the subacromial/subdeltoid bursa. No glenohumeral intra-articular loose body. Filling defects in the superior subscapularis recess likely represent air bubbles related to the arthrogram injection. Capsule and soft tissues: Diminutive appearance of the superior labrum likely related to prior labral debridement. Nondisplaced tearing of the posterior labrum. The inferior and anterior labrum are intact. Status post biceps long head tenodesis. The proximal biceps long head tendon is seen within the bicipital groove although the attachment to the tendon anchor is poorly visualized likely related to obliquity. Glenohumeral ligaments are intact. IMPRESSION: 1. Postsurgical changes from interval rotator cuff tendon repair. There is heterogeneity of the distal supraspinatus and infraspinatus tendons that could indicate partial intrasubstance tearing although no recurrent full-thickness tearing is seen. 2. Status post biceps long head tenodesis. The proximal portion of the tendon is difficult to visualize at the tendon anchor, but is suspected to be intact. 3. Postsurgical changes from probable labral debridement. Small nondisplaced tear is seen at the posterior labrum. tearing of the posterior labrum. 4. Mild glenohumeral osteoarthrosis. 5. Postsurgical widening of the acromioclavicular joint. No recurrent narrowing of the supraspinatus outlet. Approved by: Ralf Ramsey M.D. on 05/12/2024 at 13:07
--- NOTE | 2024-05-11 13:23 | DI.RAD.S_ITS ---
PROCEDURE: FL ARTHROGRAM SHOULDER LT INDICATIONS: BANKART LESION RT SHOULDER,TEAR ROTATOR CUFF COMPARISON: None. TECHNIQUE: The indications, alternatives, benefits, risks, and complications of the procedure were explained to the patient. Written informed consent was obtained and placed in the chart. The shoulder was examined fluoroscopically and a site for needle placement chosen for entry into the glenohumeral joint from an anterior approach. The skin was prepped and draped in a sterile fashion, and 1% lidocaine infiltrated from skin down to joint capsule. A spinal needle was inserted into the glenohumeral joint, and a small amount of iodinated contrast media injected to confirm intra-articular placement of the needle tip. This was followed by approximately 12 mL dilute solution of a gadolinium containing MR contrast agent. The needle was removed and a dressing was applied. The patient was given postprocedural instructions and sent to the MR suite for MR imaging. FINDINGS: A single fluoroscopic spot image demonstrates intra-articular location of injected iodinated contrast. IMPRESSION: Successful fluoroscopically guided administration of dilute Gadolinium solution into the shoulder joint for MR arthrogram. Dictated by: Shiva Umana M.D. on 05/11/2024 at 15:14 Approved by: Shiva Umana M.D. on 05/11/2024 at 15:15
[2024-05-11] MEDS: LIDOCAINE 1% 20 ML INJ (13:54)
[2024-05-11] MEDS: SODIUM CHLORIDE 0.9 % 20 ML VIAL IV (13:55)
== END ==
PROVIDERS: PCP Internal Medicine; Referring Provider Orthopaedic Surgery; Visit Provider Orthopaedic Surgery
DX: M75.122 Complete rotator cuff tear or rupture of left shoulder, not specified as traumatic (principal); M19.012 Primary osteoarthritis, left shoulder; S43.492A Other sprain of left shoulder joint, initial encounter; S43.431D Superior glenoid labrum lesion of right shoulder, subsequent encounter
CPT/HCPCS: 23350; 73040; 73222; A9579; Q9967

== ENCOUNTER → 2024-05-20 15:37 | Outpatient (CLI) | payer MEDICARE, OTHER, SELFPAY ==
--- NOTE | 2024-05-20 15:38 | DI.MG.S_ITS ---
BILATERAL DIGITAL SCREENING MAMMOGRAM 3D/2D WITH CAD: 05/20/2024 CLINICAL: Routine screening. Family history of breast cancer. Comparison is made to exams dated: 01/24/2023 mammogram, 12/28/2021 mammogram, and 11/29/2020 mammogram - [facility]. There are scattered areas of fibroglandular density (category b / 25%-50% glandular tissue). Current study was also evaluated with a Computer Aided Detection (CAD) system. No significant masses, calcifications, or other findings are seen in either breast. There has been no significant interval change. IMPRESSION: NEGATIVE There is no mammographic evidence of malignancy. A 1 year screening mammogram is recommended. Based on the Tyrer Cuzick model (a risk assessment model) the patient's lifetime risk is 10.5% and her 10 year risk is 5.3%. According to the ACR, ACS, and NCCN guidelines, an annual breast MRI exam along with mammogram is recommended if the patient's lifetime risk is 20% or greater. This exam was interpreted at Station ID: [id number]. NOTE: For mammograms, a report in lay terms will be sent to the patient. Approximately 15% of breast malignancies will not be visualized mammographically. In the management of a palpable breast mass, a negative mammogram must not discourage biopsy of a clinically suspicious lesion. Electronically Signed By: Sung casey/kang:05/21/2024 12:28:12 letter sent: Normal Exam ACR BI-RADS Category 1: Negative
== END ==
PROVIDERS: PCP Internal Medicine; Referring Provider Internal Medicine; Visit Provider Internal Medicine
DX: Z12.31 Encounter for screening mammogram for malignant neoplasm of breast (principal); Z80.3 Family history of malignant neoplasm of breast
CPT/HCPCS: 77063; 77067

== ENCOUNTER → 2024-07-16 14:30 | Outpatient (CLI) | payer MEDICARE, OTHER, SELFPAY ==
--- NOTE | 2024-07-16 14:31 | DI.US.S_ITS ---
PROCEDURE: US HERNIA INDICATIONS: left inguinal hernia TECHNIQUE: Real-time focused scanning was performed of the inguinal region, with image documentation. COMPARISON: None. FINDINGS: Left inguinal hernia containing fat fully reducible with abdominal wall defect measuring up to 2.0 cm at the neck of the hernia. Incidentally noted there is a right inguinal hernia containing fat, fully reducible with wall defect 1.6 cm at the neck of the hernia. IMPRESSION: Bilateral fat containing inguinal hernias as discussed above. Follow-up suggested if no intervention performed. If symptoms persist or worsen, CT could be performed Dictated by: Orville Alvarado M.D. on 07/16/2024 at 15:29 Approved by: Orville Alvarado M.D. on 07/16/2024 at 15:32
== END ==
PROVIDERS: PCP Internal Medicine; Referring Provider Internal Medicine; Visit Provider Internal Medicine
DX: K40.20 Bilateral inguinal hernia, without obstruction or gangrene, not specified as recurrent (principal)
CPT/HCPCS: 76705

== ENCOUNTER → 2025-01-25 10:47 | Outpatient (CLI) | payer MEDICARE, OTHER, SELFPAY ==
[2025-01-25 12:12] LABS: Hematocrit 38.3 % (36-46); Hemoglobin 12.9 g/dL (12.0-16.0); Mean Corpuscular HGB Conc 33.5 % (30-36); Mean Corpuscular Hemoglobin 31.8 PG (26-34); Mean Corpuscular Volume 95.0 fL (80-100); Platelet Count 221 X10^3/uL (150-400)
[2025-01-25 12:48] LABS: Alanine Aminotransferase 25 IU/L (<35); Albumin 4.1 g/dL (3.5-5.0); Albumin Globulin Ratio 1.3 (1.0-2.8); Alkaline Phosphatase 88 U/L (38-126); Blood Urea Nitrogen 15 mg/dL (7-17); Calcium 9.4 mg/dL (8.4-10.2); Carbon Dioxide 28 mmol/L (22-32); Chloride 103 mmol/L (98-107); Cholesterol 173 mg/dL (140-199); Estimated Glomerular Filt Rate > 60 mL/min (>60); Globulin 3.1 g/dL (1.7-4.1); Glucose 92 mg/dL (70-99); HDL Cholesterol 92 mg/dL (40-60); HEMOLYSIS < 15 (0-50); Potassium 4.4 mmol/L (3.4-5.1); Sodium 137 mmol/L (137-145); Total Protein 7.2 g/dL (6.3-8.2); Triglycerides 67 mg/dL (35-150)
[2025-01-25 13:20] LABS: TSH w/ Reflex to FT4 1.38 uIU/mL (0.47-4.68)
[2025-01-25 13:39] LABS: Vitamin B12 360 pg/mL (239-931)
[2025-01-28 14:11] LABS: 41 kD IgG Bands Absent (.); Lyme IgG Line Blot Interpretat Negative (Negative); Lyme IgM Line Blot Interpretat Negative (Negative)
== END ==
PROVIDERS: PCP Internal Medicine; Referring Provider Internal Medicine; Visit Provider Internal Medicine
DX: E03.9 Hypothyroidism, unspecified (principal); E53.8 Deficiency of other specified B group vitamins; E78.2 Mixed hyperlipidemia; Z91.89 Other specified personal risk factors, not elsewhere classified
CPT/HCPCS: 36415; 80053; 80061; 82607; 84443; 85027; 86617

== ENCOUNTER → 2025-03-01 12:26 | Outpatient (CLI) | payer MEDICARE, OTHER, SELFPAY ==
--- NOTE | 2025-03-01 12:28 | DI.ECHO.S_ITS ---
[facility] : : [id number] : [place] : : [id number] : : Phone: [phone] Echocardiogram Report + + :Name: LYNSEY RIVAS Study Date: 03/01/2025 Height: 67 in : :Hospital ReadingLocation: Weight: 170 lb : : Gender: Female BSA: 1.9 m2 : :: 1955 Age: 69 yrs BP: 105/74 mmHg: :Reason For Study: NONRHEUMATIC AORTIC VALVE INSUFFICIENCY : :Ordering Physician: JOY, : :JESUS ALBERTO Performed By: Barry Lucio : :Referring: JESUS ALBERTO HAMILTON : + + Interpretation Summary The left ventricle is normal in size. The left ventricular ejection fraction is normal. The ejection fraction is estimated to be 60-65%. There has been no significant change in LVEF since the previous exam. The right ventricle is normal in size and function. There is moderate aortic regurgitation. Compared to the prior echo study, there has been no change in the severity of aortic regurgitation. There is mild to moderate tricuspid regurgitation. Compared to the prior echo exam, there has been no change in TR severity. The right ventricular systolic pressure is estimated to be at least 36 mmHg based on an estimated right atrial pressure of 3 mm Hg. Previously 26 mmHg. The ascending aorta is moderately enlarged. 4.4 cm in diameter. In March 2023 4.0 cm in diameter. Procedure: A two-dimensional transthoracic echocardiogram with color flow and Doppler was performed. The study quality was technically good. Comparison is made with the echocardiogram of 04/15/2023. The patient was in normal sinus rhythm during the exam. Left Ventricle: The left ventricle is normal in size. There is normal left ventricular wall thickness. There is no thrombus. The ejection fraction is estimated to be 60-65%. The left ventricular ejection fraction is normal. There has been no significant change since the previous exam. There are no focal wall motion abnormalities. Diastolic parameters suggest a relaxation abnormality of the left ventricle, consistent with probable normal filling pressures. Right Ventricle: The right ventricle is normal in size and function. Atria: The left atrium is mildly dilated. There has been no significant change since the previous study. Right atrial size is normal. HX OF PFO. Mitral Valve: The mitral valve leaflets appear borderline thickened. There is mild mitral regurgitation. Aortic Valve: The aortic valve is trileaflet. The aortic valve opens well. There is moderate aortic regurgitation. Compared to the prior echo study, there has been no change in the severity of aortic regurgitation. Tricuspid Valve: The tricuspid valve leaflets are thin and pliable. There is mild to moderate tricuspid regurgitation. The right ventricular systolic pressure is estimated to be at least 36 mmHg based on an estimated right atrial pressure of 3 mm Hg. Compared to the prior echo exam, there has been no change in TR severity. Pulmonic Valve: The pulmonic valve is normal in structure and function. There is trace pulmonic regurgitation. Great Vessels: The aortic root is normal size. The ascending aorta is moderately enlarged. The pulmonary artery is normal size. The IVC is of normal diameter and collapses greater than 50% with a sniff. This suggests a low right atrial pressure of 3 mm Hg. Pericardium/ Pleura There is no pericardial effusion. There is no pleural effusion. MMode/2D Measurements & Calculations LVIDd: 5.0 cm LVOT diam: 2.2 cm LVIDs: 3.1 cm Ao root diam: 3.5 cm FS: 38.2 % asc Aorta Diam: 4.4 cm EPSS: 0.46 cm Ao Arch Diam (Prox Trans): 1.7 cm IVSd: 0.90 cm LVPWd: 0.81 cm LV bernal. diameter/BSA (cm/m^2): 2.7 LV sys. diameter/BSA (cm/m^2): 1.6 LA A2 area: 27.1 cm2 RA long axis: 4.6 cm LA A4 area: 23.7 cm2 RA area: 14.1 cm2 LA length (vol): 5.6 cm RA vol: 37.3 ml LA vol: 96.7 ml RA : 19.7 ml/m2 LA vol index: 51.2 ml/m2 IVC diam: 1.8 cm RVD1 (basal): 3.8 cm RVD2 (mid): 2.2 cm TAPSE: 2.8 cm Doppler Measurements & Calculations Ao V2 max: 158.2 cm/sec LVOT Max Darvin: 120.5 cm/sec Ao V2 mean: 107.7 cm/sec LV V1 max P.8 mmHg Ao max P.0 mmHg LV V1 VTI: 29.5 cm Ao mean P.2 mmHg DECLAN(I,D): 3.2 cm2 Ao V2 VTI: 35.7 cm DECLAN(V,D): 3.0 cm2 sev ratio: 0.83 DECLAN indexed to BSA (cm^2/m^2): 1.7 AI P1/2t: 594.6 msec AI dec slope: 221.0 cm/sec2 MV E max darvin: 53.6 cm/sec TR max darvin: 288.2 cm/sec MV A max darvin: 70.1 cm/sec TR max P.2 mmHg MV E/A: 0.76 PA V2 max: 90.2 cm/sec Med Peak E' Darvin: 6.1 cm/sec PA V2 mean: 61.3 cm/sec E/E' med: 8.7 PA mean P.7 mmHg Lat Peak E' Darvin: 8.7 cm/sec PA pr(Accel): 41.3 mmHg E/E' lat: 6.1 E/e' average: 7.4 MV dec time: 0.21 sec SV(LVOT): 115.5 ml Reading Physician:02:44 PM
== END ==
LOC: ECHO 12:27
PROVIDERS: PCP Internal Medicine; Referring Provider Internal Medicine; Visit Provider Internal Medicine Cardiovascular Disease
DX: I08.3 Combined rheumatic disorders of mitral, aortic and tricuspid valves (principal); I77.89 Other specified disorders of arteries and arterioles
CPT/HCPCS: 93306